=== PATIENT | male | born 1965 | race Hispanic/Latino ===

== ENCOUNTER 2019-06-08 11:03 | Emergency (ER) | payer SELFPAY | END 2019-06-08 11:26 | disposition home or self-care (01) | LOC: ERS 11:03 | DX: H65.92 Unspecified nonsuppurative otitis media, left ear (principal); E11.9 Type 2 diabetes mellitus without complications; I10 Essential (primary) hypertension; E78.5 Hyperlipidemia, unspecified; Z79.84 Long term (current) use of oral hypoglycemic drugs; Z79.899 Other long term (current) drug therapy | CPT/HCPCS: 99282 ==

== ENCOUNTER 2020-05-03 04:44 | Inpatient (IN) | payer MEDICAID, SELFPAY ==
[2020-05-03] MEDS ORDERED: Albuterol 200 PUFF (6.7GM INHALER) ONE (05:12)
[2020-05-03] MEDS ORDERED: Dexamethasone 10 MG/ML VIAL ONE (05:12)
[2020-05-03 05:18] LABS: #Basophils 0.1 thou/uL (0.0-0.2); #Eosinphils 0.1 thou/uL (0.0-0.7); #Lymphocytes 3.8 thou/uL (1.20-3.40); #Monocytes 0.4 thou/uL (0.11-0.59); #Neutrophils 5.7 thou/uL (1.40-6.50); %Basophils 1.4 % (0.0-1.0); %Eosinophils 1.1 % (0.0-10.0); %Lymphocytes 37.3 % (21.0-51.0); %Monocytes 4.3 % (0.0-10.0); %Neutrophils 55.9 % (42.0-75.0); Mean Corpuscular HGB CONC 32.1 g/dL (32.0-36.0); Mean Corpuscular Hemoglobin 28.9 pg (27.0-31.0); Mean Corpuscular Volume 90.2 fL (78.0-98.0); Platelet Count 287 thou/uL (130-400); RBC Distribution Width 13.1 % (11.5-14.5); White Blood Cell (WBC) Count 10.1 thou/uL (4.8-10.8)
[2020-05-03 05:58] LABS: ALT (SGPT) 11 U/L (8-55); AST (SGOT) 34 U/L (5-34); Alkaline Phosphatase 84 U/L (40-110); Anion Gap 20 mmol/L (10-20); BUN (Urea Nitrogen) 9 mg/dL (8.4-25.7); Bilirubin, Total 0.4 mg/dL (0.2-1.2); Calc. Creatinine Clearance 0 mL/min (70-130); Calcium 8.7 mg/dL (7.8-10.44); Carbon Dioxide 17 mmol/L (22-29); Chloride 105 mmol/L (98-107); Globulin 4.1 g/dL (2.4-3.5); Glucose 174 mg/dL (70-105); Potassium 4.8 mmol/L (3.5-5.1); Protein, Total 8.1 g/dL (6.0-8.3); Sodium 137 mmol/L (136-145)
[2020-05-03 06:02] LABS: CKMB 1.5 ng/mL (0-6.6)
[2020-05-03] MEDS ORDERED: Aspirin 325 MG TAB ONE (06:09)
[2020-05-03] MEDS ORDERED: Furosemide 40 MG/4 ML VIAL ONE (06:09)
[2020-05-03 06:25] LABS: SARS-CoV-2 NAA Rapid Test Not Detected (NotDetected)
[2020-05-03] MEDS ORDERED: Nitroglycerin 0.4 MG TAB 1 EACH ONE (06:30)
[2020-05-03 08:31] LABS: Troponin I 0.123 ng/mL (< 0.028)
[2020-05-03] MEDS ORDERED: Acetaminophen 650 MG Suppository PR PRN (08:37)
[2020-05-03] MEDS ORDERED: Calcium Carbonate 500 MG ChewTAB PO PRN (08:37)
[2020-05-03] MEDS ORDERED: Ondansetron ODT 4 MG TAB PO PRN (08:37)
[2020-05-03] MEDS ORDERED: Dextrose 5% in Water 1,000 ML IV PRN (08:37)
[2020-05-03] MEDS ORDERED: Acetaminophen 325 MG TAB PO PRN (08:37)
[2020-05-03] MEDS ORDERED: HumaLOG 300 UNITS/3 ML VIAL SC PRN (08:37)
[2020-05-03] MEDS ORDERED: Ondansetron PF 4 MG/2 ML Vial IVP PRN (08:37)
[2020-05-03] MEDS ORDERED: Guaifenesin DM 100-10/5 ML UDCUP PO PRN (08:37)
[2020-05-03] MEDS ORDERED: Dextrose 50% Abboject 50 ML SYRINGE SLOW IVP PRN (08:37)
--- NOTE | 2020-05-03 08:43 | PDOC.HHP ---
Hospitalist HPI dyspnea History of Present Illness: Case of an 54y/o male with a pmhx of htn, hld, diabetes and hx of cva/tia who comes to hospital due to sob. patient states he was on his usual state of health until about 2 weeks ago when he started with dyspnea. patient states symptoms have become progressively worse, refers GRANDA, orthopnea PND and a non productive cough. at the ED patient was diagnosed with new onset heart failure and hospitalist was called for admission. during the night patient become worse and had to be placed on bipap and admission was upgraded to IMCU. patient denies any fever chills nausea vomiting chest pain palpitations or diaphoresis. Allergies/Adverse Reactions: Allergy/AdvReac Type Severity Reaction Status Date / Time No Known Drug Allergies Allergy Verified 10/06/14 01:35 Home Medications: Medication Instructions Recorded Confirmed Type Aspirin [Ecotrin Regular Strength] 325 mg PO DAILY #0 tab 09/22/14 10/06/14 Rx Bisacodyl [Dulcolax] 10 mg PO DAILY PRN #0 tab 09/22/14 10/06/14 Rx Docusate [Colace] 100 mg PO BID #0 cap 09/22/14 10/06/14 Rx HYDROcodone Bit/APAP 10/325 [[place]] 1 tab PO Q4H PRN #0 tab 09/22/14 10/06/14 Rx Ondansetron HCl [Zofran] 4 mg PO Q4HR PRN #30 tab 09/22/14 10/06/14 Rx Pravastatin Sodium [Pravachol] 20 mg PO HS #0 tab 09/22/14 10/06/14 Rx metFORMIN [Glucophage] 1,000 mg PO BID-WM #0 tab 09/22/14 10/06/14 Rx traMADol HCl [Tramadol HCl] 50 mg PO QID PRN #0 tablet 09/22/14 10/06/14 Rx Lisinopril [Zestril] 20 mg PO DAILY #0 tab 10/07/14 Rx Past History: PMHx: as above PSHx: none FHx: htn dm Social: lives with family at home, denies alcohol tabacco or any other drug Hospitalist HPI ROS All other systems reviewed; all pertinent +/- noted in HPI/Subj Hospitalist Exam General Appearance: NAD, awake alert General - other findings: on bipap Eye: PERRL, anicteric sclera ENT: normocephalic atraumatic, no oropharyngeal lesions Neck: supple, symmetric, no JVD Heart: RRR, no murmur, no gallops, no rubs Respiratory: no wheezes, no ronchi, rales Gastrointestinal: soft, non-tender, non-distended Extremities: no cyanosis, no clubbing, no edema Skin: normal turgor, no lesions, no rashes Neurological: cranial nerve grossly intact, normal sensation to touch, no weakness Musculoskeletal: normal tone, normal strength, no muscle wasting Psychiatric: normal affect, normal behavior, A&O x 3 Hospitalist Results Result Diagrams: 05/03/20 05:07 05/03/20 05:07 Lab results: Laboratory Last Values WBC 10.1 thou/uL (4.8-10.8) 05/03/20 05:07 RBC 4.50 mill/uL (4.70-6.10) L 05/03/20 05:07 Hgb 13.0 g/dL (14.0-18.0) L 05/03/20 05:07 Hct 40.5 % (42.0-52.0) L 05/03/20 05:07 MCV 90.2 fL (78.0-98.0) 05/03/20 05:07 MCH 28.9 pg (27.0-31.0) 05/03/20 05:07 MCHC 32.1 g/dL (32.0-36.0) 05/03/20 05:07 RDW 13.1 % (11.5-14.5) 05/03/20 05:07 Plt Count 287 thou/uL (130-400) 05/03/20 05:07 MPV 8.0 fL (7.4-10.4) 05/03/20 05:07 Neutrophils % 55.9 % (42.0-75.0) 05/03/20 05:07 Lymphocytes % 37.3 % (21.0-51.0) 05/03/20 05:07 Monocytes % 4.3 % (0.0-10.0) 05/03/20 05:07 Eosinophils % 1.1 % (0.0-10.0) 05/03/20 05:07 Basophils % 1.4 % (0.0-1.0) H 05/03/20 05:07 Neutrophils # 5.7 thou/uL (1.40-6.50) 05/03/20 05:07 Lymphocytes # 3.8 thou/uL (1.20-3.40) H 05/03/20 05:07 Monocytes # 0.4 thou/uL (0.11-0.59) 05/03/20 05:07 Eosinophils # 0.1 thou/uL (0.0-0.7) 05/03/20 05:07 Basophils # 0.1 thou/uL (0.0-0.2) 05/03/20 05:07 D-Dimer 3.47 *mcg/mL (0.27-0.43) H 05/03/20 05:07 Sodium 137 mmol/L (136-145) 05/03/20 05:07 Potassium 4.8 mmol/L (3.5-5.1) 05/03/20 05:07 Chloride 105 mmol/L (98-107) 05/03/20 05:07 Carbon Dioxide 17 mmol/L (22-29) L 05/03/20 05:07 Anion Gap 20 mmol/L (10-20) 05/03/20 05:07 BUN 9 mg/dL (8.4-25.7) 05/03/20 05:07 Creatinine 0.94 mg/dL (0.7-1.3) 05/03/20 05:07 Estimated GFR (MDRD) 84 05/03/20 05:07 Glucose 174 mg/dL (70-105) H 05/03/20 05:07 Calcium 8.7 mg/dL (7.8-10.44) 05/03/20 05:07 Total Bilirubin 0.4 mg/dL (0.2-1.2) 05/03/20 05:07 AST 34 U/L (5-34) 05/03/20 05:07 ALT 11 U/L (8-55) 05/03/20 05:07 Alkaline Phosphatase 84 U/L (40-110) 05/03/20 05:07 CK-MB (CK-2) 1.5 ng/mL (0-6.6) 05/03/20 05:07 Troponin I 0.123 ng/mL (< 0.028) H 05/03/20 08:00 B-Natriuretic Peptide 911.4 pg/mL (0-100) H 05/03/20 05:07 Serum Total Protein 8.1 g/dL (6.0-8.3) 05/03/20 05:07 Albumin 4.0 g/dL (3.5-5.0) 05/03/20 05:07 Globulin 4.1 g/dL (2.4-3.5) H 05/03/20 05:07 Albumin/Globulin Ratio 1.0 g/dL (1.2-2.2) L 05/03/20 05:07 Influenza A RNA INAAT Not Detected (NotDetected) 05/03/20 05:05 Influenza B RNA INAAT Not Detected (NotDetected) 05/03/20 05:05 SARS-CoV-2 Rap RNA(RT-PCR) Not Detected (NotDetected) 05/03/20 05:05 Hospitalist H&P A/P (1) Acute heart failure Code(s): I50.9 - HEART FAILURE, UNSPECIFIED Status: Acute (2) History of CVA (cerebrovascular accident) Code(s): Z86.73 - PRSNL HX OF TIA (TIA), AND CEREB INFRC W/O RESID DEFICITS Status: Acute (3) HTN (hypertension) Code(s): I10 - ESSENTIAL (PRIMARY) HYPERTENSION Status: Acute (4) Diabetes Code(s): E11.9 - TYPE 2 DIABETES MELLITUS WITHOUT COMPLICATIONS Status: Acute (5) HLD (hyperlipidemia) Code(s): E78.5 - HYPERLIPIDEMIA, UNSPECIFIED Status: Acute (6) Elevated troponin Code(s): R77.8 - OTHER SPECIFIED ABNORMALITIES OF PLASMA PROTEINS Status: Acute (7) D-dimer, elevated Code(s): R79.89 - OTHER SPECIFIED ABNORMAL FINDINGS OF BLOOD CHEMISTRY Status: Acute (8) Respiratory failure with hypoxia Code(s): J96.91 - RESPIRATORY FAILURE, UNSPECIFIED WITH HYPOXIA Status: Acute Plan: Case of an 54y/o male with the stated pmhxz who presents with a new onset heart failure heart failure - bnp in the 900s - cxr consistent with chf, vascular congestion - will start beta isaak + acei - diuresis, lasix naive will start w 20 q 12 - 2d echo - cardiology evaluation - cardiac monitoring respiratory failure on bipap - likely secondary to above - on bipap - wean as tolerated - pulmonology consulted elevated dimer - cta ordered, still pending - will cover with full AC w lovenox until PE is r/o elevated troponin - likely nstemi type 2 in setting of new onset heart failure - asa 325 - on optimal cad protective medication w beta isaak acei and statin hx of cva - on secondary protection with asa + statin
--- NOTE | 2020-05-03 08:58 | RAD ---
CHEST 1 VIEW: INDICATION: Shortness of breath. COMPARISON: Prior acute abdominal series dated 10/05/2014. IMPRESSION: There is cardiomegaly, pulmonary vascular congestion, and perihilar interstitial airspace opacities. There are tiny pleural effusions bilaterally. No pneumothorax is evident. Findings are overall thelma picious for mild congestive heart failure. POS: BH
[2020-05-03] MEDS ORDERED: Aspirin 325 MG TAB PO SCH (09:00)
[2020-05-03] MEDS ORDERED: Lisinopril 2.5 MG TAB PO SCH (09:00)
[2020-05-03] MEDS ORDERED: Enoxaparin Sodium 80 MG/0.8 ML SYRINGE SC SCH (09:00)
--- NOTE | 2020-05-03 09:38 | CT ---
CT PULMONARY ANGIOGRAM WITH IV CONTRAST AND 3D POSTPROCESSING: Date: 05/03/2020 HISTORY: Dyspnea, cough. FINDINGS: No filling defects are seen in the pulmonary arterial vasculature to suggest pulmonary embolism. Ther e are vascular calcifications without aneurysm or dissection in the thoracic aorta. There are moderat e size bilateral pleural effusions. Multifocal patchy ground-glass opacities are seen in the lung par enchyma bilaterally. There are cysts in the right lung. No pneumothoraces are identified. Prominent l ymph nodes are seen in the mediastinum measuring up to 1.0 cm. IMPRESSION: 1. No CT evidence of pulmonary embolism. 2. Moderate size bilateral pleural effusions. 3. Bilateral patchy multifocal ground-glass infiltrates. Correlate for COVID-19 infection. POS: OFF
[2020-05-03] MEDS ORDERED: Iopamidol-370 76% 500 ML 1 ML ONE (10:23)
[2020-05-03] MEDS ORDERED: Enoxaparin Sodium 40 MG/0.4 ML SYRINGE SC SCH (11:00)
[2020-05-03 11:10] VITALS: BMI 24.0
[2020-05-03 11:29] LABS: Troponin I 0.281 ng/mL (< 0.028)
[2020-05-03] MEDS: Carvedilol 3.125 MG TAB PO SCH ×2 (11:29→20:48)
[2020-05-03] MEDS ORDERED: Magnesium Sulfate 3 GM in Sodium Chloride 0.9% 100 ML IVPB SCH (13:30)
[2020-05-03] MEDS: Furosemide 20 MG/2 ML VIAL SLOW IVP SCH (15:08)
[2020-05-03 16:56] LABS: SARS-CoV-2 PCR by NAA Not Detected (NotDetected)
--- NOTE | 2020-05-03 20:08 | CON ---
DATE OF CONSULTATION: 05/03/2020 REASON FOR CONSULTATION: Congestive heart failure. HISTORY OF PRESENT ILLNESS: Mr. Derrick Cueto is a very pleasant 54-year-old gentleman. He said he has been having trouble breathing for about 10 days. He came here to the hospital because he had increasing trouble breathing. Chest x-ray has suggested congestive heart failure and BNP also confirmed the diagnosis of congestive heart failure, received diuretics. He is also feeling better now. He did not have chest pain or pressure. PAST MEDICAL HISTORY: History of stroke in 2015. SOCIAL HISTORY: Previous history of smoking, but no longer smokes. Stopped in the past. REVIEW OF SYSTEMS: CONSTITUTIONAL: No significant weight gain or loss. VISION: No changes. HEARING: No changes. PULMONARY: Positive for shortness of breath. CARDIAC: Positive for shortness of breath. No chest pain. GASTROINTESTINAL: No nausea, vomiting, or diarrhea. SKIN: No rashes. NEUROLOGIC: No unilateral weakness or numbness. PSYCHIATRIC: No unusual depression or anxiety. PHYSICAL EXAMINATION: GENERAL: This is a pleasant, thin, 54-year-old man. VITAL SIGNS: Height 5 feet 5 inches tall, weight 144 pounds. HEENT: Eyes, sclerae nonicteric. Mouth, mucous membranes moist. NECK: Supple. No lymphadenopathy. LUNGS: With basilar rales bilaterally. No wheezing. CARDIAC: Normal S1, normal S2. No murmur, rub, or gallop. ABDOMEN: Soft, nontender. EXTREMITIES: No clubbing or cyanosis. There is no edema. DIAGNOSTIC STUDIES: Chest x-ray looks like the heart size looks somewhat enlarged with some pulmonary vascular congestion. LABORATORY DATA: Magnesium 1.5. Troponin 0.281. BNP 911. Blood pressure in the emergency room was 130/77 followed by 178/102. EKG, sinus tachycardia, left ventricular hypertrophy with repolarization changes, diffuse T-wave abnormalities, and inversion in I to aVL and V3 through V6. QRS duration is 0.1. ASSESSMENT: 1. Congestive heart failure, likely systolic, acute on chronic. 2. Lib-EY-mmmplelyy infarction with a peak troponin of 0.281, probably demand ischemia. 3. Probable underlying coronary artery disease. 4. Hypomagnesemia. 5. Still has rales. 6. CT scan is suggestive of consideration for COVID, but the COVID tests are negative. PLAN: 1. Continue diuretics. 2. We will give him some intravenous magnesium. 3. Check BNP tomorrow. 4. Echocardiogram. 5. Ultimately, we will need cardiac catheterization once he is clinically more stabilized. Job ID: [id number]
[2020-05-03] MEDS: Atorvastatin Calcium 40 MG TAB PO SCH (20:48)
[2020-05-03] MEDS: Lisinopril 2.5 MG TAB PO SCH (20:49)
[2020-05-04 04:35] LABS: #Lymphocytes 2.7 thou/uL (1.20-3.40); #Monocytes 0.8 thou/uL (0.11-0.59); #Neutrophils 12.5 thou/uL (1.40-6.50); %Basophils 0.2 % (0.0-1.0); %Eosinophils 0.1 % (0.0-10.0); %Lymphocytes 16.8 % (21.0-51.0); %Monocytes 4.8 % (0.0-10.0); Hemoglobin 11.1 g/dL (14.0-18.0); Mean Corpuscular HGB CONC 31.8 g/dL (32.0-36.0); Mean Corpuscular Hemoglobin 28.2 pg (27.0-31.0); Mean Corpuscular Volume 88.7 fL (78.0-98.0); Mean Platelet Volume 7.9 fL (7.4-10.4); Platelet Count 262 thou/uL (130-400); Red Blood Cell (RBC) Count 3.92 mill/uL (4.70-6.10)
[2020-05-04] MEDS: Furosemide 20 MG/2 ML VIAL SLOW IVP SCH ×2 (05:12→15:33)
[2020-05-04 05:14] LABS: ALT (SGPT) 8 U/L (8-55); AST (SGOT) 17 U/L (5-34); Albumin 3.8 g/dL (3.5-5.0); Alkaline Phosphatase 73 U/L (40-110); Anion Gap 15 mmol/L (10-20); BUN (Urea Nitrogen) 14 mg/dL (8.4-25.7); Bilirubin, Total 0.6 mg/dL (0.2-1.2); Calc. Creatinine Clearance 102 mL/min (70-130); Carbon Dioxide 22 mmol/L (22-29); Chloride 104 mmol/L (98-107); Globulin 3.1 g/dL (2.4-3.5); Glucose 118 mg/dL (70-105); Potassium 3.8 mmol/L (3.5-5.1); Protein, Total 6.9 g/dL (6.0-8.3); Sodium 137 mmol/L (136-145)
[2020-05-04] MEDS: Lisinopril 2.5 MG TAB PO SCH ×2 (08:21→20:27)
[2020-05-04] MEDS: Aspirin Chewable 81 MG TAB PO SCH (08:22)
[2020-05-04] MEDS: Carvedilol 3.125 MG TAB PO SCH ×2 (08:23→20:27)
[2020-05-04] MEDS ORDERED: Enoxaparin Sodium 40 MG/0.4 ML SYRINGE SC SCH (09:00)
--- NOTE | 2020-05-04 11:08 | PDOC.HOSPP ---
- Subjective Encounter Date: 05/04/20 Subjective: Patient reports she is feeling better. Denies any shortness of breath. - Objective Vital Signs & Weight: Vital Signs (12 hours) Temp Pulse Resp BP Pulse Ox 05/04/20 03:15 97.7 F 82 16 101/64 98 05/04/20 00:00 97 Weight Weight 137 lb 6.4 oz I&O: 05/03/20 05/04/20 05/05/20 06:59 06:59 06:59 Intake Total 1330 Output Total 750 Balance 580 Result Diagrams: 05/04/20 04:10 05/04/20 04:10 Additional Labs: Accuchecks 05/04/20 05/04/20 05/03/20 10:41 05:49 20:06 POC Glucose 162 H 135 H 181 H 05/03/20 05/03/20 16:32 11:00 POC Glucose 140 H 227 H Hospitalist ROS - Medication Medications: Active Medications Generic Name Dose Route Start Last Admin Trade Name Freq PRN Reason Stop Dose Admin Aspirin 81 mg 05/04/20 09:00 05/04/20 08:22 Aspirin Chewable 81 Mg Tab PO 81 mg DAILY JOSÉ MIGUEL Administration Atorvastatin Calcium 40 mg 05/03/20 21:00 05/03/20 20:48 Atorvastatin Calcium 40 Mg Tab PO 40 mg HS JOSÉ MIGUEL Administration Calcium Carbonate 1,000 mg 05/03/20 08:37 05/03/20 20:52 Calcium Carbonate 500 Mg Chewtab PO 1,000 mg Q4H PRN Administration Heartburn or Indigestion Carvedilol 3.125 mg 05/03/20 09:00 05/04/20 08:23 Carvedilol 3.125 Mg Tab PO 3.125 mg BID JOSÉ MIGUEL Administration Enoxaparin Sodium 40 mg 05/04/20 09:00 05/04/20 08:23 Enoxaparin Sodium 40 Mg/0.4 Ml Syringe SC 40 mg 0900 JOSÉ MIGUEL Administration Furosemide 20 mg 05/03/20 14:00 05/04/20 05:12 Furosemide 20 Mg/2 Ml Vial SLOW IVP 20 mg 0600,1400 JOSÉ MIGUEL Administration Levofloxacin 750 mg/ Device 150 mls @ 100 mls/hr 05/03/20 20:00 05/03/20 20:49 IVPB 150 mls Q24HR JOSÉ MIGUEL Administration Insulin Human Lispro 0 units 05/03/20 08:37 05/03/20 11:41 Humalog 300 Units/3 Ml Vial SC 3 unit .MILD SLIDING SCALE PRN Administration Mild Correctional Scale Lisinopril 2.5 mg 05/03/20 21:00 05/04/20 08:21 Lisinopril 2.5 Mg Tab PO 2.5 mg BID JOSÉ MIGUEL Administration Sodium Chloride 10 ml 05/03/20 21:00 05/04/20 08:23 Flush - Normal Saline 10 Ml Syringe IVF 10 ml Q12HR JOSÉ MIGUEL Administration Sodium Chloride 10 ml 05/03/20 09:15 05/04/20 05:12 Flush - Normal Saline 10 Ml Syringe IVF 10 ml PRN PRN Administration Saline Flush Hospitalist Exam Vitals: Vital Signs (12 hours) Temp Pulse Resp BP Pulse Ox 05/04/20 03:15 97.7 F 82 16 101/64 98 05/04/20 00:00 97 Weight Weight 137 lb 6.4 oz General Appearance: NAD, awake alert Neck: supple, symmetric, no JVD, no thyromegaly, no lymphadenopathy, no carotid bruit Heart: RRR, no murmur, no gallops, no rubs, normal peripheral pulses Respiratory: CTAB, no wheezes, no rales, no ronchi, normal chest expansion, no tachypnea, normal percussion Gastrointestinal: soft, non-tender, non-distended, normal bowel sounds, no palpable masses, no hepatomegaly, no splenomegaly, no bruit Extremities: no cyanosis, no clubbing, no edema Skin: normal turgor Neurological: no new deficit Musculoskeletal: normal tone, normal strength, no muscle wasting Psychiatric: normal affect, normal behavior, A&O x 3 Hosp A/P (1) Acute heart failure Code(s): I50.9 - HEART FAILURE, UNSPECIFIED Status: Acute (2) D-dimer, elevated Code(s): R79.89 - OTHER SPECIFIED ABNORMAL FINDINGS OF BLOOD CHEMISTRY Status: Acute (3) Diabetes Code(s): E11.9 - TYPE 2 DIABETES MELLITUS WITHOUT COMPLICATIONS Status: Acute (4) Elevated troponin Code(s): R77.8 - OTHER SPECIFIED ABNORMALITIES OF PLASMA PROTEINS Status: Acute (5) HLD (hyperlipidemia) Code(s): E78.5 - HYPERLIPIDEMIA, UNSPECIFIED Status: Acute (6) HTN (hypertension) Code(s): I10 - ESSENTIAL (PRIMARY) HYPERTENSION Status: Acute (7) History of CVA (cerebrovascular accident) Code(s): Z86.73 - PRSNL HX OF TIA (TIA), AND CEREB INFRC W/O RESID DEFICITS Status: Acute (8) Respiratory failure with hypoxia Code(s): J96.91 - RESPIRATORY FAILURE, UNSPECIFIED WITH HYPOXIA Status: Acute - Plan Acute heart failure: Specific etiology not yet known. Echocardiogram pending Cardiology consult appreciated. Continue with diuresis. Continue with JUHI inhibitor. Continue with carvedilol. Acute hypoxic respiratory failure: Patient initially was requiring some CPAP but was quickly weaned down to room air. No evidence of ongoing respiratory failure or symptomatic shortness of breath. Elevated D-dimer: Negative CTA chest. Patient also had some findings on the CT which could have been consistent with COVID-19 pneumonia. That would explain an elevated D-dimer as well. However, his white blood cell count is elevated and his Covid test is negative. He also feels symptomatically much better today. Elevated troponin: Slowly trending upward. Consistent with NSTEMI. Will likely need heart cath. Hypertension: Continue with JUHI inhibitor beta-isaak. Diabetes mellitus: Holding Metformin in light of the fact that he will likely need a heart cath. Continue with sliding scale insulin. So far well controlled. Tobacco abuse: Patient himself indicated that he believes his problems are related to his smoking. He feels confident he will be able to quit. Hyperlipidemia: Continue with atorvastatin.
[2020-05-04] MEDS ORDERED: FLU VACC QS2020-21(6MOS UP)/PF 60 MCG/0.5 ML SYRINGE IM ONE (11:15)
[2020-05-04] MEDS ORDERED: Communication Order-Pharmacy FS SCH (13:15)
--- NOTE | 2020-05-04 13:49 | PRG ---
DATE OF SERVICE: 05/04/2020 SUBJECTIVE: Mr. Cueto is feeling better. He is breathing well. No chest pain or pressure. OBJECTIVE: VITAL SIGNS: His blood pressure is just over 100 systolic, pulse is in the 70 to 80 range. LUNGS: Clear. CARDIAC: Normal S1, normal S2. ABDOMEN: Soft, nontender. EXTREMITIES: No edema. DIAGNOSTIC DATA: Echocardiogram showed ejection fraction 25%, anterior apical akinesis, otherwise global hypokinesis. ASSESSMENT: 1. Congestive heart failure, systolic, acute on chronic, improved. 2. Severely depressed left ventricular function. 3. Probable underlying coronary artery disease. PLAN: 1. He is on JUHI inhibitors. 2. Beta blockers. 3. Aspirin. 4. Statin. 5. Proceed to cardiac catheterization tomorrow. I explained to this gentleman with the help of the interpreting device in the dental practice manager service in the room. The risks of catheterization discussed risk of stroke, heart attack, emergency bypass surgery, stent thrombosis. The patient understands the risk and wishes to proceed. Job ID: [id number]
[2020-05-04] MEDS: Atorvastatin Calcium 40 MG TAB PO SCH (20:27)
[2020-05-05] MEDS: Carvedilol 3.125 MG TAB PO SCH (05:17)
[2020-05-05] MEDS: Lisinopril 2.5 MG TAB PO SCH (05:17)
[2020-05-05] MEDS: Aspirin Chewable 81 MG TAB PO SCH (05:18)
[2020-05-05] MEDS ORDERED: Sodium Chloride 0.9% 1,000 ML IV SCH (06:00)
[2020-05-05] MEDS ORDERED: Protamine Sulfate 250 MG/25 ML VIAL ONE (08:44)
[2020-05-05] MEDS ORDERED: Cardioplegic Soln 1,000 ML BAG ONE (08:44)
[2020-05-05] MEDS ORDERED: Aminocaproic Acid 5 GM/20 ML VIAL ONE (08:44)
[2020-05-05] MEDS ORDERED: Papaverine 60 MG/2 ML VIAL ONE (08:44)
[2020-05-05] MEDS ORDERED: Magnesium Sulfate 1 GM/2 ML VIAL ONE (08:44)
[2020-05-05] MEDS ORDERED: Nitroglycerin 50 MG/250 ML BOT ONE (08:44)
[2020-05-05] MEDS ORDERED: Sodium Bicarb 50 MEQ/50 ML Abboject 8.4% SYRINGE ONE (08:44)
[2020-05-05] MEDS ORDERED: Heparin 30,000 units/30 ml VIAL ONE (08:44)
[2020-05-05] MEDS ORDERED: Thrombin 5000 UNITS/5 ML VIAL ONE (08:44)
[2020-05-05] MEDS ORDERED: Norepinephrine 4 MG/4 ML VIAL ONE (08:44)
[2020-05-05] MEDS ORDERED: PHENYLEPHRINE-NS 100 MCG/ML 10 ML SYRINGE ONE (08:44)
[2020-05-05] MEDS ORDERED: Vecuronium 10 MG VIAL ONE ×3 (08:44→11:12)
[2020-05-05] MEDS ORDERED: Heparin 5,000 UNITS/ML VIAL ONE (08:44)
[2020-05-05] MEDS ORDERED: Mannitol 12.5 GM/50 ML ONE (08:44)
[2020-05-05] MEDS ORDERED: Lidocaine 2% PF 100 mg/5 ml Syringe ONE (08:44)
[2020-05-05] MEDS ORDERED: Calcium Chloride 1 GM/10 ML Abboject SYRINGE ONE (08:44)
[2020-05-05] MEDS ORDERED: Potassium Chloride 60 MEQ/30 ML VIAL ONE (08:44)
[2020-05-05] MEDS ORDERED: Lidocaine 1% PF 5 ML VIAL ONE ×2 (08:44)
[2020-05-05] MEDS ORDERED: Fentanyl 100 MCG/2 ML VIAL ONE ×2 (10:17→11:12)
[2020-05-05] MEDS ORDERED: Midazolam HCl 2 mg/2 ml Vial ONE ×2 (10:17→11:12)
[2020-05-05] MEDS ORDERED: Heparin 10,000 UNITS/ 10 ML VIAL ONE (10:45)
[2020-05-05] MEDS ORDERED: Albumin 5% 500 ML ONE (11:05)
[2020-05-05] MEDS ORDERED: Midazolam HCl 5 mg/5 ml Vial ONE (11:12)
[2020-05-05] MEDS ORDERED: Dexmedetomidine 200 MCG/2 ML VIAL ONE (11:12)
[2020-05-05] MEDS ORDERED: Milrinone 10 MG/10 ML VIAL ONE ×3 (11:40)
[2020-05-05] MEDS ORDERED: Heparin 10,000 UNITS/1 ML VIAL 30,000 UNITS in Sodium Chloride 0.9% 1,000 ML FS SCH (12:15)
[2020-05-05] MEDS ORDERED: Iopamidol 370 76% 100 ML VIAL ONE (13:08)
--- NOTE | 2020-05-05 13:16 | PDOC.HOSPP ---
- Subjective Encounter Date: 05/05/20 Encounter Time: 08:00 Subjective: pt seen on f/u for heart failure, is schedule for [facility] today, refers is feeling fine denies any chest pain palpitations or diaphoresis - Objective Vital Signs & Weight: Vital Signs (12 hours) Temp Pulse Resp BP Pulse Ox 05/05/20 07:30 98 05/05/20 07:20 98.5 F 61 18 99/65 98 05/05/20 05:18 104/62 05/05/20 05:17 64 05/05/20 03:31 98.9 F 64 16 93/61 98 Weight Weight 135 lb I&O: 05/04/20 05/05/20 05/06/20 06:59 06:59 06:59 Intake Total 1330 1700 Output Total 750 Balance 580 1700 Result Diagrams: 05/04/20 04:10 05/04/20 04:10 Additional Labs: Accuchecks 05/05/20 05/04/20 05/04/20 05:14 20:09 16:46 POC Glucose 121 H 183 H 151 H Hospitalist ROS - Review of Systems All other systems reviewed; all pertinent +/- noted in HPI/Subj - Medication Medications: Active Medications Generic Name Dose Route Start Last Admin Trade Name Freq PRN Reason Stop Dose Admin Aspirin 81 mg 05/04/20 09:00 05/05/20 05:18 Aspirin Chewable 81 Mg Tab PO 81 mg DAILY JOSÉ MIGUEL Administration Atorvastatin Calcium 40 mg 05/03/20 21:00 05/04/20 20:27 Atorvastatin Calcium 40 Mg Tab PO 40 mg HS JOSÉ MIGUEL Administration Calcium Carbonate 1,000 mg 05/03/20 08:37 05/03/20 20:52 Calcium Carbonate 500 Mg Chewtab PO 1,000 mg Q4H PRN Administration Heartburn or Indigestion Carvedilol 3.125 mg 05/03/20 09:00 05/05/20 05:17 Carvedilol 3.125 Mg Tab PO 3.125 mg BID JOSÉ MIGUEL Administration Levofloxacin 750 mg/ Device 150 mls @ 100 mls/hr 05/03/20 20:00 05/04/20 20:26 IVPB 150 mls Q24HR JOSÉ MIGUEL Administration Sodium Chloride 1,000 mls @ 70 mls/hr 05/05/20 06:00 05/05/20 05:17 Normal Saline 0.9% IV 1,000 mls .[id number] JOSÉ MIGUEL Administration Lisinopril 2.5 mg 05/03/20 21:00 05/05/20 05:17 Lisinopril 2.5 Mg Tab PO 2.5 mg BID JOSÉ MIGUEL Administration Sodium Chloride 10 ml 05/03/20 21:00 05/05/20 05:18 Flush - Normal Saline 10 Ml Syringe IVF 10 ml Q12HR JOSÉ MIGUEL Administration Sodium Chloride 10 ml 05/03/20 09:15 05/04/20 05:12 Flush - Normal Saline 10 Ml Syringe IVF 10 ml PRN PRN Administration Saline Flush Hospitalist Exam Vitals: Vital Signs (12 hours) Temp Pulse Resp BP Pulse Ox 05/05/20 07:30 98 05/05/20 07:20 98.5 F 61 18 99/65 98 05/05/20 05:18 104/62 05/05/20 05:17 64 05/05/20 03:31 98.9 F 64 16 93/61 98 Weight Weight 135 lb General Appearance: NAD, awake alert Eye: PERRL, anicteric sclera ENT: normocephalic atraumatic, no oropharyngeal lesions Neck: supple, symmetric, no JVD Heart: RRR, no murmur, no gallops Respiratory: CTAB, no wheezes, no rales Gastrointestinal: soft, non-tender, non-distended Extremities: no cyanosis, no clubbing, no edema Skin: normal turgor, no lesions, no rashes Neurological: cranial nerve grossly intact, normal sensation to touch Musculoskeletal: normal tone, normal strength, no muscle wasting Psychiatric: normal affect, normal behavior, A&O x 3 Hosp A/P (1) Acute heart failure Code(s): I50.9 - HEART FAILURE, UNSPECIFIED Status: Acute (2) History of CVA (cerebrovascular accident) Code(s): Z86.73 - PRSNL HX OF TIA (TIA), AND CEREB INFRC W/O RESID DEFICITS Status: Acute (3) HTN (hypertension) Code(s): I10 - ESSENTIAL (PRIMARY) HYPERTENSION Status: Acute (4) Diabetes Code(s): E11.9 - TYPE 2 DIABETES MELLITUS WITHOUT COMPLICATIONS Status: Acute (5) HLD (hyperlipidemia) Code(s): E78.5 - HYPERLIPIDEMIA, UNSPECIFIED Status: Acute (6) Elevated troponin Code(s): R77.8 - OTHER SPECIFIED ABNORMALITIES OF PLASMA PROTEINS Status: Ac ruperto (7) D-dimer, elevated Code(s): R79.89 - OTHER SPECIFIED ABNORMAL FINDINGS OF BLOOD CHEMISTRY Status: Acute (8) Respiratory failure with hypoxia Code(s): J96.91 - RESPIRATORY FAILURE, UNSPECIFIED WITH HYPOXIA Status: Acute - Plan Acute heart failure Echo 25-30% ef Continue with diuresis. Continue with JUHI inhibitor. Continue with carvedilol. Acute hypoxic respiratory failure: - Patient initially was requiring some CPAP but was quickly weaned down to room air. Elevated D-dimer: - Negative CTA chest. - Patient also had some findings on the CT which could have been consistent with COVID-19 pneumonia. - negative covid 19 Elevated troponin: Slowly trending upward. Consistent with NSTEMI. Cardiology consulted, recommended LHC will happening today, patient require emergen CABG will be send to icu Hypertension -Continue with JUHI inhibitor beta-isaak. Diabetes mellitus - Holding Metformin in light of the fact that he will likely need a heart cath. - Continue with sliding scale insulin. Tobacco abuse: Patient himself indicated that he believes his problems are related to his smoking. He feels confident he will be able to quit. Hyperlipidemia: Continue with atorvastatin.
[2020-05-05 16:10] LABS: Actual Bicarbonate (HCO3a) 21.7 mEq/L (22-28); Base Excess (BEa) -4.1 mEq/L (-2.0 to +3.0); CO2 Tension 42.3 mmHg (35.0-45.0); Calcium, Ionized (arterial) 1.11 mmol/L (1.12-1.30); Hemoglobin (Hb) 12.1 g/dL (14.0-18.0); O2 Tension (PaO2), arterial 74.2 mmHg (80.0-100.0); Potassium - ABG Lab 4.07 mmol/L (3.70-5.30); pH, Arterial 7.33 (7.35-7.45)
[2020-05-05 16:24] LABS: ALV-art Gradient 300.725 mmHg (0-20); Puncture Site Arterial Line
[2020-05-05] MEDS ORDERED: niCARdipine 25 MG in Sodium Chloride 0.9% 250 ML 240 ML IVPB PRN (16:38)
[2020-05-05] MEDS ORDERED: Promethazine HCl 25 MG/ML VIAL IM PRN (16:38)
[2020-05-05] MEDS ORDERED: Guaifenesin DM 100-10/5 ML UDCUP PO PRN (16:38)
[2020-05-05] MEDS ORDERED: Morphine 2 MG/ML VIAL SLOW IVP PRN (16:38)
[2020-05-05] MEDS ORDERED: Hetastarch 6% 500 ML 500 ML IVPB PRN (16:38)
[2020-05-05] MEDS ORDERED: hydrALAZINE 20 MG/ML VIAL SLOW IVP PRN (16:38)
[2020-05-05] MEDS ORDERED: Bisacodyl 10 MG SUPP PR PRN (16:38)
[2020-05-05] MEDS ORDERED: Norepinephrine 8 MG/0.9% NS 250 ML IVPB PRN (16:38)
[2020-05-05] MEDS ORDERED: Mag-Al 1200 mg/1200 mg/30 ML UDCUP PO PRN (16:38)
[2020-05-05] MEDS ORDERED: Potassium Chloride 20 MEQ/100 ML PREMIX BAG IVPB PRN (16:38)
[2020-05-05] MEDS ORDERED: Nitroglycerin 50 MG/250 ML BOT 250 ML IVPB PRN (16:38)
[2020-05-05] MEDS ORDERED: Fentanyl 100 MCG/2 ML VIAL SLOW IVP PRN (16:38)
[2020-05-05] MEDS ORDERED: Post-Op Insulin Drip Protocol IVPB ONE (16:38)
[2020-05-05] MEDS ORDERED: Ondansetron PF 4 MG/2 ML Vial IVP PRN (16:38)
[2020-05-05] MEDS ORDERED: Bisacodyl 5 MG TAB PO PRN (16:38)
[2020-05-05] MEDS ORDERED: DOPamine 400 MG/D5W 250 ML 250 ML IVPB PRN (16:38)
--- NOTE | 2020-05-05 17:05 | RAD ---
CHEST ONE VIEW: 05/05/20 HISTORY: Post open heart surgery. COMPARISON: CT angiogram chest two days prior. FINDINGS: Endotracheal tube tip sits below the clavicular level. Small right pneumomediastinum with mediastinal drains. Mild pulmonary edema. No significant pneumothorax. A right sided subclavian approach catheter. Tip projects to the left beth e of midline in expected location in the mid descending left SVC. The patient does have a left sided SVC which does drain into the coronary sinus. No acute osseous abnormality. IMPRESSION: 1. Uncomplicated postoperative findings. 2. Right subclavian approach central venous catheter tip projects through the mid descending lef t side of SVC which the left sided SVC was noted on the 05/03/20 CT angiogram examination. POS: HOME
[2020-05-05 17:11] LABS: Hemoglobin 11.7 g/dL (14.0-18.0); Mean Corpuscular HGB CONC 32.2 g/dL (32.0-36.0); Mean Corpuscular Volume 90.1 fL (78.0-98.0); Mean Platelet Volume 8.5 fL (7.4-10.4); Platelet Count 173 thou/uL (130-400); RBC Distribution Width 13.1 % (11.5-14.5); Red Blood Cell (RBC) Count 4.04 mill/uL (4.70-6.10); White Blood Cell (WBC) Count 20.3 thou/uL (4.8-10.8)
[2020-05-05] MEDS ORDERED: Magnesium 2 GM/50 ML 2 GM in Premix Bag 1 BAG IVPB SCH (17:15)
[2020-05-05] MEDS ORDERED: Dextrose 5% in Water 1,000 ML IV PRN (17:15)
[2020-05-05] MEDS ORDERED: Dextrose 50% Abboject 50 ML SYRINGE SLOW IVP PRN (17:15)
[2020-05-05] MEDS ORDERED: HUMULIN R 100 UNITS in Sodium Chloride 0.9% 100 ML IVPB SCH (17:15)
[2020-05-05 17:16] LABS: INR-International Normal Ratio 1.3; PTT 30.8 sec (22.9-36.1); Prothrombin Time 16.4 sec (12.0-14.7)
[2020-05-05 17:25] LABS: Anion Gap 13 mmol/L (10-20); BUN (Urea Nitrogen) 16 mg/dL (8.4-25.7); Calc. Creatinine Clearance 106 mL/min (70-130); Calcium 7.8 mg/dL (7.8-10.44); Carbon Dioxide 21 mmol/L (22-29); Chloride 108 mmol/L (98-107); Glucose 164 mg/dL (70-105); Potassium 4.2 mmol/L (3.5-5.1); Sodium 138 mmol/L (136-145)
[2020-05-05] MEDS: Lactated Ringer's 1,000 ML IV SCH (17:31)
[2020-05-05] MEDS: Fentanyl 100 MCG/2 ML VIAL SLOW IVP PRN ×2 (17:31→20:44)
[2020-05-05] MEDS: Ketorolac Tromethamine 30 MG/ML VIAL IVP SCH ×2 (17:40→22:59)
[2020-05-05 17:49] LABS: Band 30 % (5-11); Lymphocytes 9 % (21-51); MDiff Complete? YES; Neutrophil 61 % (42-75); Platelet Morphology Comment Appears Adequate; Polychromasia SLIGHT = 2-3 cells (100X) (0-2/hpf)
[2020-05-05] MEDS: CEFAZOLIN 2 GM in Premix Bag 1 BAG IVPB SCH ×2 (17:52→22:50)
--- NOTE | 2020-05-05 18:21 | CON ---
DATE OF CONSULTATION: HISTORY OF PRESENT ILLNESS: A 54-year-old gentleman with a 2-week history of fatigue and dyspnea and presented to the hospital 2 days ago with a troponin of less than 0.3. Chest x-ray and CTA are consistent with pulmonary edema. COVID swab negative. Cardiac echo, EF to 25% per Dr. Mahoney's interpretation and cardiac cath today with an LVEDP of 22, systolic pressure of 96. EF appears to be about 10% to 15%. Diffusely diseased right coronary artery including proximal PDA, near complete occlusion and long segment occlusion of the left main with occluded LAD that fills slowly from itself. The circumflex consisted of basically a single obtuse marginal. PAST MEDICAL HISTORY: Diabetes, hypertension, dyslipidemia, remote smoking history, remote heavy alcohol use, previous stroke from left vertebral artery occlusion distally about five years ago with resolution of symptoms. 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 MEDICATIONS: Prior to admission included: 1. Metformin 1000 a day. 2. Pravastatin 20 a day. 3. Lisinopril 20 a day. 4. Aspirin 1 a day. PAST SURGICAL HISTORY: Negative. PHYSICAL EXAMINATION: VITAL SIGNS: Weight 135 pounds, height 5 feet 5 inches, blood pressure about 100, heart rate about 60. NECK: No carotid bruits. LUNGS: Clear to auscultation. CARDIAC: Distant heart sounds. No murmurs. ABDOMEN: Nontender. EXTREMITIES: Sheaths in the right groin. Palpable femoral and popliteal pulses bilaterally with no peripheral edema. IMPRESSION: The patient with subtotal left main, recent LAD occlusion with slight elevation in enzymes with very poor ejection fraction compared with 5 years ago when his EF was normal. PLAN: Emergency coronary bypass grafting to the LAD, OM, possible right PDA, and informed consent has been obtained. Job ID: [id number]
[2020-05-05] MEDS ORDERED: Milrinone Lactate/D5W 20 MG in Premix Bag 1 BAG IV SCH (18:45)
[2020-05-05] MEDS: Famotidine/PF 20 mg/2ml Vial SLOW IVP SCH (20:44)
[2020-05-05] MEDS: Insulin Regular 300 UNITS/3 ML VIAL SC PRN (20:56)
[2020-05-05] MEDS: Simvastatin 20 MG TAB PO SCH (21:05)
[2020-05-05 21:17] LABS: Hemoglobin 10.4 g/dL (14.0-18.0)
[2020-05-05 21:33] LABS: Potassium 3.8 mmol/L (3.5-5.1)
[2020-05-05 22:35] LABS: Actual Bicarbonate (HCO3a) 21.2 mEq/L (22-28); Base Excess (BEa) -2.7 mEq/L (-2.0 to +3.0); CO2 Tension 33.9 mmHg (35.0-45.0); Calcium, Ionized (arterial) 1.04 mmol/L (1.12-1.30); Carboxyhemoglobin (COHb) 0.5 gm% (0.0-3.0); Potassium - ABG Lab 3.61 mmol/L (3.70-5.30); Puncture Site Arterial Line; pH, Arterial 7.42 (7.35-7.45)
[2020-05-05 22:36] LABS: ALV-art Gradient 117.825 mmHg (0-20)
[2020-05-06] MEDS: HYDROcodone/Acetaminophen 5/325 mg Tablet PO PRN ×3 (03:59→14:41)
[2020-05-06 05:22] LABS: Band 7 % (5-11); Hemoglobin 9.6 g/dL (14.0-18.0); Lymphocytes 17 % (21-51); MDiff Complete? YES; Mean Corpuscular HGB CONC 32.5 g/dL (32.0-36.0); Mean Corpuscular Hemoglobin 29.6 pg (27.0-31.0); Mean Platelet Volume 8.6 fL (7.4-10.4); Monocytes 5 % (0-10); Neutrophil 71 % (42-75); Platelet Count 153 thou/uL (130-400); RBC Distribution Width 12.7 % (11.5-14.5); Red Blood Cell (RBC) Count 3.23 mill/uL (4.70-6.10); White Blood Cell (WBC) Count 10.6 thou/uL (4.8-10.8)
[2020-05-06] MEDS: Lactated Ringer's 1,000 ML IV SCH ×2 (05:25→18:45)
[2020-05-06] MEDS: Ketorolac Tromethamine 30 MG/ML VIAL IVP SCH ×4 (05:26→23:45)
[2020-05-06 05:27] LABS: Anion Gap 11 mmol/L (10-20); BUN (Urea Nitrogen) 16 mg/dL (8.4-25.7); Calc. Creatinine Clearance 118 mL/min (70-130); Calcium 7.5 mg/dL (7.8-10.44); Carbon Dioxide 22 mmol/L (22-29); Chloride 109 mmol/L (98-107); Glucose 108 mg/dL (70-105); Potassium 3.6 mmol/L (3.5-5.1); Sodium 138 mmol/L (136-145)
[2020-05-06] MEDS: Famotidine/PF 20 mg/2ml Vial SLOW IVP SCH ×2 (09:23→20:06)
[2020-05-06] MEDS: Aspirin Chewable 81 MG TAB PO SCH (09:23)
[2020-05-06] MEDS: CEFAZOLIN 2 GM in Premix Bag 1 BAG IVPB SCH (12:55)
--- NOTE | 2020-05-06 14:40 | PDOC.HOSPP ---
- Subjective Encounter Date: 05/06/20 Encounter Time: 10:30 Subjective: Patient seen and examined for CHF/coronary artery disease. Denies any chest pain or palpitations. Pain controlled. Denies any nausea or vomiting. - Objective Vital Signs & Weight: Vital Signs (12 hours) Temp Pulse Ox 05/06/20 12:00 98.3 F 05/06/20 11:26 93 L 05/06/20 08:00 97.9 F 93 L 05/06/20 07:55 97 05/06/20 04:15 93 L 05/06/20 04:00 98.0 F Weight Weight 141 lb 8.588 oz Most Recent Monitor Data Heart Rate from ECG 84 NIBP 109/68 NIBP BP-Mean 81 Respiration from ECG 16 SpO2 93 I&O: 05/05/20 05/06/20 05/07/20 06:59 06:59 06:59 Intake Total 1700 1991.6 1570 Output Total 1445 450 Balance 1700 546.6 1120 Result Diagrams: 05/06/20 04:16 05/06/20 04:16 Additional Labs: Accuchecks 05/06/20 05/06/20 05/05/20 12:42 09:38 23:58 POC Glucose 117 H 109 H 98 05/05/20 19:24 POC Glucose 134 H Abnormal Lab Results - Last 48 hrs 05/05/20 12:01: Crossmatch See Detail 05/05/20 16:00: Bicarbonate Actual 21.7 L, ABG pH 7.33 L, ABG pO2 74.2 L, ABG O2 Sat (Measured) 93.2 L, ABG O2 Content 15.7 L, ABG Base Excess -4.1 L, ABG Hematocrit 36.0 L, ABG Hemoglobin 12.1 L, ABG Oxyhemoglobin 92.0 L, ABG Deoxyhemoglobin 6.7 H, A-a O2 Gradient 300.725 H, Chloride 108 H, Ionized Calcium 1.11 L 05/05/20 16:01: Chloride 108 H, Carbon Dioxide 21 L, Creatinine 0.69 L 05/05/20 16:01: WBC 20.3 H, RBC 4.04 L, Hgb 11.7 L, Hct 36.3 L, Band Neuts % (Manual) 30 H, Lymphocytes % (Manual) 9 L 05/05/20 16:01: PT 16.4 H 05/05/20 21:00: Hgb 10.4 L, Hct 32.3 L 05/05/20 22:00: Bicarbonate Actual 21.2 L, ABG pCO2 33.9 L, ABG pO2 125.0 H, ABG O2 Sat (Measured) 98.4 H, ABG O2 Content 15.3 L, ABG Base Excess -2.7 L, ABG Hematocrit 32.0 L, ABG Hemoglobin 11.0 L, A-a O2 Gradient 117.825 H, Potassium 3.61 L, Chloride 111 H, Ionized Calcium 1.04 L 05/06/20 04:16: Chloride 109 H, Creatinine 0.62 L, Calcium 7.5 L 05/06/20 04:16: RBC 3.23 L, Hgb 9.6 L, Hct 29.4 L, Lymphocytes % (Manual) 17 L Radiology Reviewed by me: Yes (Chest x-rayno new infiltrate) EKG Reviewed by me: Yes (Sinus rhythm on telemetry) Hospitalist ROS - Review of Systems Cardiovascular: denies: chest pain, palpitations, orthopnea, paroxysmal noc. dyspnea, edema, light headedness, other Gastrointestinal: denies: nausea, vomiting, abdominal pain, diarrhea, constipation, melena, hematochezia, other - Medication Medications: Active Medications Generic Name Dose Route Start Last Admin Trade Name Freq PRN Reason Stop Dose Admin Hydrocodone Bitart/Acetaminophen 1 tab 05/05/20 16:38 05/06/20 03:59 Hydrocodone/Acetaminophen 5/325 Mg Tablet PO 1 tab Q4H PRN Administration Moderate Pain (4-6) Hydrocodone Bitart/Acetaminophen 2 tab 05/05/20 16:38 05/06/20 09:28 Hydrocodone/Acetaminophen 5/325 Mg Tablet PO 2 tab Q4H PRN Administration Severe Pain (7-10) Albumin Human 12.5 gm 05/05/20 16:38 05/06/20 09:29 Albumin 5% 12.5 Gm/250 Ml Bot IVPB 05/06/20 16:39 12.5 gm Q6H PRN Administration To Maintain SBP> 90 mmHG Albumin Human 25 gm 05/05/20 16:38 05/05/20 22:50 Albumin 5% 12.5 Gm/250 Ml Bot IVPB 05/06/20 16:39 25 gm Q6H PRN Administration To Maintain SBP > 90 mmHG Aspirin 81 mg 05/06/20 09:00 05/06/20 09:23 Aspirin Chewable 81 Mg Tab PO 81 mg DAILY JOSÉ MIGUEL Administration Famotidine 20 mg 05/05/20 21:00 05/06/20 09:23 Famotidine/Pf 20 Mg/2ml Vial SLOW IVP 20 mg Q12HR JOSÉ MIGUEL Administration Fentanyl 50 mcg 05/05/20 16:38 05/05/20 20:44 Fentanyl 100 Mcg/2 Ml Vial SLOW IVP 05/07/20 15:30 50 mcg Q2H PRN Administration Severe Pain (7-10) Hetastarch/Sodium Chloride 500 mls @ 0 mls/hr 05/05/20 16:38 05/05/20 19:30 Hespan IVPB 05/06/20 15:30 500 mls PRN PRN Administration To Maintain SBP > 90mmHg As Directed Lactated Ringer's 1,000 mls @ 75 mls/hr 05/05/20 16:38 05/06/20 05:25 Lactated Ringer's IV 1,000 mls .[id number] JOSÉ MIGUEL Administration Insulin Human Regular 0 units 05/05/20 17:15 05/05/20 20:56 Insulin Regular 300 Units/3 Ml Vial SC 2 unit Q4H PRN Administration POST OP SLIDING SCALE Protocol Ketorolac Tromethamine 15 mg 05/05/20 18:00 05/06/20 12:56 Ketorolac Tromethamine 30 Mg/Ml Vial IVP 05/07/20 18:01 15 mg Q6HR JOSÉ MIGUEL Administration Simvastatin 20 mg 05/05/20 21:00 05/05/20 21:05 Simvastatin 20 Mg Tab PO Not Given QPM [facility] Hospitalist Exam Vitals: Vital Signs (12 hours) Temp Pulse Ox 05/06/20 12:00 98.3 F 05/06/20 11:26 93 L 05/06/20 08:00 97.9 F 93 L 05/06/20 07:55 97 05/06/20 04:15 93 L 05/06/20 04:00 98.0 F Weight Weight 141 lb 8.588 oz Most Recent Monitor Data Heart Rate from ECG 84 NIBP 109/68 NIBP BP-Mean 81 Respiration from ECG 16 SpO2 93 General Appearance: awake alert ENT: normocephalic atraumatic, no oropharyngeal lesions Neck: supple, no JVD Heart: RRR, no gallops Respiratory: no wheezes, no rales, no ronchi, normal chest expansion Respiratory - other findings: Chest tube present Gastrointestinal: soft, non-distended, normal bowel sounds, no guarding, no rigidity Extremities: no cyanosis, no clubbing, no edema Extremities - other findings: No calf tenderness Neurological: no new deficit Musculoskeletal: generalized weakness Psychiatric: normal affect, A&O x 3 Hosp A/P - Plan DVT proph w/SCDs 54-year-old male with hypertension, diabetes mellitus type 2, hyperlipidemia and CVA in the past presented to the hospital with shortness of breath on 05/03. He was started on noninvasive positive pressure ventilation for respiratory failure/new onset congestive heart failure. His BNP on admission was 911.4 with elevated troponin of 0.281.. He was started on IV diuretics along with O2 supplementation. Patient was evaluated by cardiology Dr. Mahoney who recommended cardiac catheterization on 05/05 that showed three-vessel disease with ejection fraction of approximately 10 to 15% requiring emergent coronary artery bypass grafting that was performed on the same day. Impression: Acute hypoxic respiratory failure due to acute systolic heart failure exace rbation Non-ST elevation NV probably due to demand ischemia Hypertension Diabetes mellitus type 2 Hyperlipidemia History of CVA Chronic anemia probably due to nutritional deficiency Hypomagnesemia Plan: Continue aspirin with statins. Magnesium replaced. Continue supportive care. Recheck labs in a.m. Pain control. DVT and GI prophylaxis.
--- NOTE | 2020-05-06 15:20 | PDOC.CPN ---
- Subjective Date: 05/06/20 Time: 15:19 Interval history: Doing better. Had Emergent CABG yesterday. Chest soreness. - Review of Systems General: denies: fever/chills, weight/appetite/sleep changes, night sweats, fatigue Respiratory: denies: cough, congestion, shortness of breath, exercise intolerance Cardiovascular: reports: chest pain. denies: palpitation, edema, paroxysmal nocturnal dyspnea, orthopnea Gastrointestinal: denies: nausea, vomiting, diarrhea, constipation, abd pain, GI bleeding Musculoskeletal: reports: pain. denies: tenderness, stiffness, swelling, arthritis/arthralgias Neurological: denies: numbness, syncope, seizure, weakness - Objective Allergies/Adverse Reactions: Allergies Allergy/AdvReac Type Severity Reaction Status Date / Time No Known Drug Allergies Allergy Verified 10/06/14 01:35 Visit Medications: Current Medications Acetaminophen (Acetaminophen 325 Mg Tab) 650 mg PO Q6H PRN PRN Reason: Headache/Fever Or Mild Pain Hydrocodone Bitart/Acetaminophen (Hydrocodone/Acetaminophen 5/325 Mg Tablet) 1 tab PO Q4H PRN PRN Reason: Moderate Pain (4-6) Last Admin: 05/06/20 03:59 Dose: 1 tab Documented by: Hydrocodone Bitart/Acetaminophen (Hydrocodone/Acetaminophen 5/325 Mg Tablet) 2 tab PO Q4H PRN PRN Reason: Severe Pain (7-10) Last Admin: 05/06/20 14:41 Dose: 2 tab Documented by: Al Hydroxide/Mg Hydroxide (Mag-Al 1200 Mg/1200 Mg/30 Ml Udcup) 30 ml PO Q4H PRN PRN Reason: Indigestion Albumin Human (Albumin 5% 12.5 Gm/250 Ml Bot) 12.5 gm IVPB Q6H PRN PRN Reason: To Maintain SBP> 90 mmHG Stop: 05/06/20 16:39 Last Admin: 05/06/20 09:29 Dose: 12.5 gm Documented by: Albumin Human (Albumin 5% 12.5 Gm/250 Ml Bot) 25 gm IVPB Q6H PRN PRN Reason: To Maintain SBP > 90 mmHG Stop: 05/06/20 16:39 Last Admin: 05/05/20 22:50 Dose: 25 gm Documented by: Albuterol/Ipratropium (Ipratropium/Albuterol Sulfate 3 Ml Neb) 3 ml NEB [id number] PRN PRN Reason: SOB Aspirin (Aspirin Chewable 81 Mg Tab) 81 mg PO DAILY [facility] Last Admin: 05/06/20 09:23 Dose: 81 mg Documented by: Bisacodyl (Bisacodyl 5 Mg Tab) 10 mg PO Q12H PRN PRN Reason: Constipation Bisacodyl (Bisacodyl 10 Mg Supp) 10 mg HI Q12H PRN PRN Reason: Constipation Dextrose/Water (Dextrose 50% Abboject 50 Ml Syringe) 25 gm SLOW IVP PRN PRN PRN Reason: PER HYPOGLYCEMIC PROTOCOL Famotidine (Famotidine/Pf 20 Mg/2ml Vial) 20 mg SLOW IVP Q12HR [facility] Last Admin: 05/06/20 09:23 Dose: 20 mg Documented by: Fentanyl (Fentanyl 100 Mcg/2 Ml Vial) 25 mcg SLOW IVP Q2H PRN PRN Reason: Moderate Pain (4-6) Stop: 05/07/20 15:30 Fentanyl (Fentanyl 100 Mcg/2 Ml Vial) 50 mcg SLOW IVP Q2H PRN PRN Reason: Severe Pain (7-10) Stop: 05/07/20 15:30 Last Admin: 05/05/20 20:44 Dose: 50 mcg Documented by: Glucagon (Glucagon 1 Mg/Ml Vial) 1 mg SC PRN PRN PRN Reason: PER HYPOGLYCEMIC PROTOCOL Guaifenesin/Dextromethorphan (Guaifenesin Dm 100-10/5 Ml Udcup) 15 ml PO Q4H PRN PRN Reason: Cough Hydralazine HCl (Hydralazine 20 Mg/Ml Vial) 10 mg SLOW IVP Q6H PRN PRN Reason: To Maintain SBP< 140mmHG Dopamine HCl/Dextrose (Dopamine 400 Mg/D5w 250 Ml) 250 mls @ 0 mls/hr IVPB PRN PRN; Protocol PRN Reason: To maintain SBP > 90 mmHG Hetastarch/Sodium Chloride (Hespan) 500 mls @ 0 mls/hr IVPB PRN PRN PRN Reason: To Maintain SBP > 90mmHg Stop: 05/06/20 15:30 Last Admin: 05/05/20 19:30 Dose: 500 mls Documented by: Norepinephrine Bitartrate (Levophed) 250 mls @ 0 mls/hr IVPB PRN PRN; Protocol PRN Reason: To maintain SBP > 90 mmHG Lactated Ringer's (Lactated Ringer's) 1,000 mls @ 75 mls/hr IV .[id number] [facility] Last Admin: 05/06/20 05:25 Dose: 1,000 mls Documented by: Dextrose/Water (D5w) 1,000 mls @ 0 mls/hr IV INF PRN PRN Reason: PRN HYPOGLYCEMIC PROTOCOL Milrinone Lactate/Dextrose 20 (mg/ Device) 100 mls @ 0 mls/hr IV INF JOSÉ MIGUEL; Protocol Insulin Human Regular (Insulin Regular 300 Units/3 Ml Vial) 0 units SC Q4H PRN; Protocol PRN Reason: POST OP SLIDING SCALE Last Admin: 05/05/20 20:56 Dose: 2 unit Documented by: Ketorolac Tromethamine (Ketorolac Tromethamine 30 Mg/Ml Vial) 15 mg IVP Q6HR [facility] Stop: 05/07/20 18:01 Last Admin: 05/06/20 12:56 Dose: 15 mg Documented by: Ondansetron HCl (Ondansetron Pf 4 Mg/2 Ml Vial) 4 mg IVP Q6H PRN PRN Reason: Nausea/Vomiting Potassium Chloride (Potassium Chloride 20 Meq/100 Ml Premix Bag) 20 meq IVPB PRN PRN PRN Reason: K level </= 4.0 Promethazine HCl (Promethazine Hcl 25 Mg/Ml Vial) 6.25 mg IM Q4H PRN PRN Reason: Nausea/Vomiting Simvastatin (Simvastatin 20 Mg Tab) 20 mg PO QPM [facility] Last Admin: 05/05/20 21:05 Dose: Not Given Documented by: Vital Signs & Weight: Vital Signs Temp Pulse Ox 05/06/20 12:00 98.3 F 05/06/20 11:26 93 L 05/06/20 08:00 97.9 F 93 L 05/06/20 07:55 97 05/06/20 04:15 93 L 05/06/20 04:00 98.0 F Weight 141 lb 8.588 oz - Physical Exam General: alert & oriented x3 HEENT: mucus membranes moist Neck: supple neck Cardiac: regular rate and rhythm Lungs: clear to auscultation Neuro: grossly intact Abdomen: active bowel sounds Extremities: 1+ LE edema Skin: clear Musculoskeletal: normal range of motion - Labs Result Diagrams: 05/06/20 04:16 05/06/20 04:16 Troponin/CKMB CK-MB (CK-2) 1.5 ng/mL (0-6.6) 05/03/20 05:07 Troponin I 0.281 ng/mL (< 0.028) H 05/03/20 10:53 - Telemetry Sinus rhythms and dysrhythmias: sinus rhythm - Assessment/Plan Assessment/Plan: 1. Severe multivessel CAD 2. S/P CABG 3. Ischemic CM EF pre bypass 25-30% PLAN: - Wean levophed as tolerated - Start PT once tolerated - Pain control - ASA/Statin - BB and ACEI once BP allows.
--- NOTE | 2020-05-06 16:32 | RAD ---
RADIOGRAPH CHEST 1 VIEW: DATE: 05/06/2020 TIME: 5:56 AM HISTORY: 54-year-old male status post open heart surgery COMPARISON: 05/05/2020 FINDINGS: Again noted is the right subclavian central vascular catheter which crosses the midline of the upper mediastinum, with distal tip overlying the proximal descending thoracic aorta and region of left pulmonic trunk. 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 There are bilateral pleural effusions. There has been interval worsening of diffuse bilateral mild to moderate mixed interstitial and alveol ar groundglass infiltrates. Sternotomy wires. No pneumothorax. Consolidation at left lower lobe base is probably atelectasis. Sternotomy wires. Midline mediastinal tube. There is a thin, curvilinear, approximately 3.5 cm long foreign body overlapping the midline at the l evel of the upper heart or lower mediastinum. This was present on positron yesterday, but not on 05/03/2020 IMPRESSION: 1) thin curvilinear foreign body overlying the mid chest. Exact location is uncertain. It is possible that this could be a surgical needle. Recommend noncontrast chest CT for further evaluation. 2) right subclavian central vascular catheter distal tip is either within the anomalous left-sided de la torre perior vena cava, or descending thoracic aorta. The former is favored. This could also be confirmed with noncontrast chest CT. 3) bilateral pleural effusions. 4) cardiomegaly. 5) recently status post coronary artery bypass graft surgery. 6) left lower lobe atelectasis. 7) diffuse bilateral groundglass infiltrates, nonspecific, but COVID 19 pneumonia is a possibility.
[2020-05-06] MEDS: Simvastatin 20 MG TAB PO SCH (21:30)
[2020-05-06] MEDS: Insulin Regular 300 UNITS/3 ML VIAL SC PRN (21:43)
[2020-05-07] MEDS: Insulin Regular 300 UNITS/3 ML VIAL SC PRN ×2 (01:35→18:19)
[2020-05-07] MEDS: HYDROcodone/Acetaminophen 5/325 mg Tablet PO PRN (04:29)
[2020-05-07 05:13] LABS: #Basophils 0.1 thou/uL (0.0-0.2); #Lymphocytes 2.4 thou/uL (1.20-3.40); #Monocytes 0.8 thou/uL (0.11-0.59); #Neutrophils 7.2 thou/uL (1.40-6.50); %Basophils 0.6 % (0.0-1.0); %Eosinophils 0.3 % (0.0-10.0); %Lymphocytes 22.7 % (21.0-51.0); %Monocytes 7.2 % (0.0-10.0); %Neutrophils 69.2 % (42.0-75.0); Hemoglobin 9.5 g/dL (14.0-18.0); Mean Corpuscular HGB CONC 32.5 g/dL (32.0-36.0); Mean Corpuscular Hemoglobin 29.1 pg (27.0-31.0); Mean Corpuscular Volume 89.6 fL (78.0-98.0); Mean Platelet Volume 9.2 fL (7.4-10.4); Platelet Count 130 thou/uL (130-400); RBC Distribution Width 12.9 % (11.5-14.5); Red Blood Cell (RBC) Count 3.25 mill/uL (4.70-6.10); White Blood Cell (WBC) Count 10.4 thou/uL (4.8-10.8)
[2020-05-07 05:33] LABS: Anion Gap 10 mmol/L (10-20); BUN (Urea Nitrogen) 12 mg/dL (8.4-25.7); Calc. Creatinine Clearance 113 mL/min (70-130); Calcium 7.7 mg/dL (7.8-10.44); Carbon Dioxide 25 mmol/L (22-29); Chloride 105 mmol/L (98-107); Glucose 112 mg/dL (70-105); Magnesium 1.7 mg/dL (1.6-2.6); Potassium 3.6 mmol/L (3.5-5.1); Sodium 136 mmol/L (136-145)
[2020-05-07] MEDS: Ketorolac Tromethamine 30 MG/ML VIAL IVP SCH ×3 (06:15→17:47)
--- NOTE | 2020-05-07 06:52 | OP ---
DATE OF PROCEDURE: 05/05/2020 PREOPERATIVE DIAGNOSIS: Severe coronary artery disease with congestive heart failure. POSTOPERATIVE DIAGNOSIS: Severe coronary artery disease with congestive heart failure. PROCEDURE PERFORMED: Coronary artery bypass graft x3: Left internal mammary artery to a 2-mm left anterior descending at the takeoff of a diagonal; saphenous vein graft, good quality, to a 2-mm obtuse marginal and a 1.5-mm posterior descending artery. CLINICAL ASSOCIATE: Dr. Beaulieu. TRANSFUSION: None. DESCRIPTION OF PROCEDURE: After adequate anesthesia had been obtained, the patient was prepped and draped and I performed a median sternotomy while Dr. Beaulieu performed an endovascular vein harvest of the left greater saphenous vein. After heparinization, the mammary was divided distally. It lie anterior to the lung and minimal amount of thymic tissue. The aorta was under the right hemisternum and was cannulated as was the right atrium and cardiopulmonary bypass was begun. The entire anterior wall of the left ventricle was akinetic. Aorta was cross-clamped, and after a liter of cold blood cardioplegia, the OM was opened and saphenous vein anastomosed here. Ultimately, a single suture was required in the toe of the anastomosis prior to coming off bypass. The PDA was opened and a separate end-to-side anastomosis completed here and then finally the LAD was opened at the takeoff of the diagonal and LOMELI to LAD anastomosis completed. The cross-clamp was removed and the partial occluding clamp placed and 2 vein grafts were performed on the aortic root. The OM vein graft had to be lengthened slightly with little interposition graft because when the heart filled up, it was too short to comfortably reach the aorta. Following completion of this, the grafts laid nicely in the pericardium. He was weaned from cardiopulmonary bypass with Milrinone, Levophed, and nitroglycerin. Cannula was removed and protamine given systemically and the aortic cannulation site was secured with a Prolene suture. Mediastinal drains x2 were placed, following which the sternum was reapproximated with #7 interrupted wire. Subcutaneous tissues and skin closed in layers using vancomycin paste on the sternal edges, platelet-rich blood, and platelet-poor plasma. Job ID: [id number]
[2020-05-07] MEDS ORDERED: Potassium Chloride 20 MEQ TAB PO SCH (08:30)
[2020-05-07] MEDS ORDERED: Magnesium 2 GM/50 ML 2 GM in Premix Bag 1 BAG IVPB SCH (09:00)
[2020-05-07] MEDS: Aspirin Chewable 81 MG TAB PO SCH (09:12)
[2020-05-07] MEDS: Furosemide 40 MG TAB PO SCH (09:12)
--- NOTE | 2020-05-07 10:48 | RAD ---
EXAM: Chest one view: HISTORY: Postop open heart surgery COMPARISON: 05/06/2020 FINDINGS: Minimal cardiomegaly with bilateral vascular congestion and patchy alveolar and interstitial parenchy mal changes in the perihilar regions with evidence for left pleural effusion. Again noted is a somewhat curvilinear, linear opacity overlying the mid chest and left-sided main bronchus region. No evidence for pneumothorax. IMPRESSION: Overall stable appearing chest. Continued short-term follow-up.
--- NOTE | 2020-05-07 14:42 | PDOC.CPN ---
- Subjective Date: 05/07/20 Time: 14:41 Interval history: Doing better today. No new issues. Sore chest. - Review of Systems General: denies: fever/chills, weight/appetite/sleep changes, night sweats, fatigue Respiratory: denies: cough, congestion, shortness of breath, exercise intolerance Cardiovascular: reports: chest pain. denies: palpitation, edema, paroxysmal nocturnal dyspnea, orthopnea Gastrointestinal: denies: nausea, vomiting, diarrhea, constipation, abd pain, GI bleeding Musculoskeletal: denies: pain, tenderness, stiffness, swelling, arthri tis/arthralgias Neurological: denies: numbness, syncope, seizure, weakness - Objective Allergies/Adverse Reactions: Allergies Allergy/AdvReac Type Severity Reaction Status Date / Time No Known Drug Allergies Allergy Verified 10/06/14 01:35 Visit Medications: Current Medications Acetaminophen (Acetaminophen 325 Mg Tab) 650 mg PO Q6H PRN PRN Reason: Headache/Fever Or Mild Pain Hydrocodone Bitart/Acetaminophen (Hydrocodone/Acetaminophen 5/325 Mg Tablet) 1 tab PO Q4H PRN PRN Reason: Moderate Pain (4-6) Last Admin: 05/07/20 04:29 Dose: 1 tab Documented by: Hydrocodone Bitart/Acetaminophen (Hydrocodone/Acetaminophen 5/325 Mg Tablet) 2 tab PO Q4H PRN PRN Reason: Severe Pain (7-10) Last Admin: 05/06/20 14:41 Dose: 2 tab Documented by: Al Hydroxide/Mg Hydroxide (Mag-Al 1200 Mg/1200 Mg/30 Ml Udcup) 30 ml PO Q4H PRN PRN Reason: Indigestion Albuterol/Ipratropium (Ipratropium/Albuterol Sulfate 3 Ml Neb) 3 ml NEB [id number] PRN PRN Reason: SOB Aspirin (Aspirin Chewable 81 Mg Tab) 81 mg PO DAILY JOSÉ MIGUEL Last Admin: 05/07/20 09:12 Dose: 81 mg Documented by: Atorvastatin Calcium (Atorvastatin Calcium 10 Mg Tab) 10 mg PO HS JOSÉ MIGUEL Bisacodyl (Bisacodyl 5 Mg Tab) 10 mg PO Q12H PRN PRN Reason: Constipation Last Admin: 05/07/20 04:32 Dose: 10 mg Documented by: Bisacodyl (Bisacodyl 10 Mg Supp) [address] Q12H PRN PRN Reason: Constipation Dextrose/Water (Dextrose 50% Abboject 50 Ml Syringe) 25 gm SLOW IVP PRN PRN PRN Reason: PER HYPOGLYCEMIC PROTOCOL Fentanyl (Fentanyl 100 Mcg/2 Ml Vial) 25 mcg SLOW IVP Q2H PRN PRN Reason: Moderate Pain (4-6) Stop: 05/07/20 15:30 Fentanyl (Fentanyl 100 Mcg/2 Ml Vial) 50 mcg SLOW IVP Q2H PRN PRN Reason: Severe Pain (7-10) Stop: 05/07/20 15:30 Last Admin: 05/05/20 20:44 Dose: 50 mcg Documented by: Furosemide (Furosemide 40 Mg Tab) 40 mg PO DAILY[facility] Last Admin: 05/07/20 09:12 Dose: 40 mg Documented by: Glucagon (Glucagon 1 Mg/Ml Vial) 1 mg SC PRN PRN PRN Reason: PER HYPOGLYCEMIC PROTOCOL Guaifenesin/Dextromethorphan (Guaifenesin Dm 100-10/5 Ml Udcup) 15 ml PO Q4H PRN PRN Reason: Cough Hydralazine HCl (Hydralazine 20 Mg/Ml Vial) 10 mg SLOW IVP Q6H PRN PRN Reason: To Maintain SBP< 140mmHG Dopamine HCl/Dextrose (Dopamine 400 Mg/D5w 250 Ml) 250 mls @ 0 mls/hr IVPB PRN PRN; Protocol PRN Reason: To maintain SBP > 90 mmHG Norepinephrine Bitartrate (Levophed) 250 mls @ 0 mls/hr IVPB PRN PRN; Protocol PRN Reason: To maintain SBP > 90 mmHG Dextrose/Water (D5w) 1,000 mls @ 0 mls/hr IV INF PRN PRN Reason: PRN HYPOGLYCEMIC PROTOCOL Insulin Human Regular (Insulin Regular 300 Units/3 Ml Vial) 0 units SC Q4H PRN; Protocol PRN Reason: POST OP SLIDING SCALE Last Admin: 05/07/20 01:35 Dose: 2 unit Documented by: Ketorolac Tromethamine (Ketorolac Tromethamine 30 Mg/Ml Vial) 15 mg IVP Q6HR [facility] Stop: 05/07/20 18:01 Last Admin: 05/07/20 12:06 Dose: 15 mg Documented by: Ondansetron HCl (Ondansetron Pf 4 Mg/2 Ml Vial) 4 mg IVP Q6H PRN PRN Reason: Nausea/Vomiting Pantoprazole Sodium (Pantoprazole 40 Mg Tab) 40 mg PO DAILY [facility] Last Admin: 05/07/20 09:12 Dose: 40 mg Documented by: Potassium Chloride (Potassium Chloride 20 Meq/100 Ml Premix Bag) 20 meq IVPB PRN PRN PRN Reason: K level </= 4.0 Potassium Chloride (Potassium Chloride 20 Meq Tab) 20 meq PO BID[facility] Stop: 05/08/20 08:01 Promethazine HCl (Promethazine Hcl 25 Mg/Ml Vial) 6.25 mg IM Q4H PRN PRN Reason: Nausea/Vomiting Vital Signs & Weight: Vital Signs Temp Pulse Ox 05/07/20 12:00 98.3 F 05/07/20 08:00 99.4 F 95 05/07/20 04:00 98.0 F 92 L Weight 144 lb 2.917 oz - Physical Exam General: alert & oriented x3 HEENT: mucus membranes moist Neck: supple neck Cardiac: regular rate and rhythm Lungs: clear to auscultation Neuro: grossly intact Abdomen: active bowel sounds Extremities: no edema Skin: clear - Labs Result Diagrams: 05/07/20 03:30 05/07/20 03:30 Troponin/CKMB CK-MB (CK-2) 1.5 ng/mL (0-6.6) 05/03/20 05:07 Troponin I 0.281 ng/mL (< 0.028) H 05/03/20 10:53 - Telemetry Sinus rhythms and dysrhythmias: sinus rhythm - Assessment/Plan Assessment/Plan: 1. Severe multivessel CAD 2. S/P CABG 3. Ischemic CM EF pre bypass 25-30% PLAN: - Off levophed since this morning. - Start PT once tolerated - Pain control - ASA/Statin - BB and ACEI once BP allows, still too low at this time.
[2020-05-07] MEDS: Potassium Chloride 20 MEQ TAB PO SCH (17:46)
[2020-05-07] MEDS: Atorvastatin Calcium 10 MG TAB PO SCH (20:44)
[2020-05-07] MEDS: Acetaminophen 325 MG TAB PO PRN (20:46)
--- NOTE | 2020-05-07 21:13 | PDOC.HOSPP ---
- Subjective Encounter Date: 05/07/20 Encounter Time: 14:00 Subjective: Patient seen and examined for non-ST elevation SC/new-onset CHF. Denies any new complaints. Chest tube removed earlier today. - Objective Vital Signs & Weight: Vital Signs (12 hours) Temp Pulse Ox 05/07/20 19:57 98 05/07/20 19:00 98.5 F 05/07/20 16:00 98.5 F 05/07/20 12:00 98.3 F Weight Weight 144 lb 2.917 oz Most Recent Monitor Data Heart Rate from ECG 81 NIBP 105/60 NIBP BP-Mean 75 Respiration from ECG 10 SpO2 97 I&O: 05/06/20 05/07/20 05/08/20 06:59 06:59 06:59 Intake Total 1991.6 3699.1 1010 Output Total 1445 1253 1105 Balance 546.6 2446.1 -95 Result Diagrams: 05/07/20 03:30 05/07/20 03:30 Additional Labs: Accuchecks 05/07/20 05/07/20 05/07/20 20:42 18:13 01:32 POC Glucose 119 H 160 H 131 H 05/06/20 21:33 POC Glucose 135 H Abnormal Lab Results - Last 48 hrs 05/05/20 21:00: Hgb 10.4 L, Hct 32.3 L 05/05/20 22:00: Bicarbonate Actual 21.2 L, ABG pCO2 33.9 L, ABG pO2 125.0 H, ABG O2 Sat (Measured) 98.4 H, ABG O2 Content 15.3 L, ABG Base Excess -2.7 L, ABG Hematocrit 32.0 L, ABG Hemoglobin 11.0 L, A-a O2 Gradient 117.825 H, Potassium 3.61 L, Chloride 111 H, Ionized Calcium 1.04 L 05/06/20 04:16: Chloride 109 H, Creatinine 0.62 L, Calcium 7.5 L 05/06/20 04:16: RBC 3.23 L, Hgb 9.6 L, Hct 29.4 L, Lymphocytes % (Manual) 17 L 05/07/20 03:30: Creatinine 0.68 L, Calcium 7.7 L 05/07/20 03:30: RBC 3.25 L, Hgb 9.5 L, Hct 29.1 L, Neutrophils # 7.2 H, Monocytes # 0.8 H EKG Reviewed by me: Yes (Sinus rhythm on telemetry) Hospitalist ROS - Review of Systems Respiratory: denies: cough, dry, shortness of breath, hemoptysis, SOB with excertion, pleuritic pain, sputum, wheezing, other Cardiovascular: denies: chest pain, palpitations, orthopnea, paroxysmal noc. dyspnea, edema, light headedness, other - Medication Medications: Active Medications Generic Name Dose Route Start Last Admin Trade Name Freq PRN Reason Stop Dose Admin Acetaminophen 650 mg 05/05/20 16:38 05/07/20 20:46 Acetaminophen 325 Mg Tab PO 650 mg Q6H PRN Administration Headache/Fever Or Mild Pain Hydrocodone Bitart/Acetaminophen 1 tab 05/05/20 16:38 05/07/20 04:29 Hydrocodone/Acetaminophen 5/325 Mg Tablet PO 1 tab Q4H PRN Administration Moderate Pain (4-6) Hydrocodone Bitart/Acetaminophen 2 tab 05/05/20 16:38 05/06/20 14:41 Hydrocodone/Acetaminophen 5/325 Mg Tablet PO 2 tab Q4H PRN Administration Severe Pain (7-10) Aspirin 81 mg 05/06/20 09:00 05/07/20 09:12 Aspirin Chewable 81 Mg Tab PO 81 mg DAILY JOSÉ MIGUEL Administration Atorvastatin Calcium 10 mg 05/07/20 21:00 05/07/20 20:44 Atorvastatin Calcium 10 Mg Tab PO 10 mg HS JOSÉ MIGUEL Administration Bisacodyl 10 mg 05/05/20 16:38 05/07/20 04:32 Bisacodyl 5 Mg Tab PO 10 mg Q12H PRN Administration Constipation Furosemide 40 mg 05/07/20 07:30 05/07/20 09:12 Furosemide 40 Mg Tab PO 40 mg DAILY-AC JOSÉ MIGUEL Administration Insulin Human Regular 0 units 05/05/20 17:15 05/07/20 18:19 Insulin Regular 300 Units/3 Ml Vial SC 3 unit Q4H PRN Administration POST OP SLIDING SCALE Protocol Pantoprazole Sodium 40 mg 05/07/20 09:00 05/07/20 09:12 Pantoprazole 40 Mg Tab PO 40 mg DAILY JOSÉ MIGUEL Administration Potassium Chloride 20 meq 05/07/20 17:00 05/07/20 17:46 Potassium Chloride 20 Meq Tab PO 05/08/20 08:01 20 meq BID-[facility] Administration Hospitalist Exam Vitals: Vital Signs (12 hours) Temp Pulse Ox 05/07/20 19:57 98 05/07/20 19:00 98.5 F 05/07/20 16:00 98.5 F 05/07/20 12:00 98.3 F Weight Weight 144 lb 2.917 oz Most Recent Monitor Data Heart Rate from ECG 81 NIBP 105/60 NIBP BP-Mean 75 Respiration from ECG 10 SpO2 97 General Appearance: awake alert Neck: supple, no JVD Heart: RRR, no gallops, no rubs Respiratory: no wheezes, no rales, no ronchi, normal chest expansion Gastrointestinal: soft, non-tender, non-distended, no guarding, no rigidity Extremities: no cyanosis, no clubbing Neurological: no new deficit Musculoskeletal: generalized weakness Psychiatric: normal affect, A&O x 3 Hosp A/P - Plan DVT proph w/SCDs 54-year-old male with hypertension, diabetes mellitus type 2, hyperlipidemia and CVA in the past presented to the hospital with shortness of breath on 05/03. He was started on noninvasive positive pressure ventilation for respiratory failure/new onset congestive heart failure. His BNP on admission was 911.4 with elevated troponin of 0.281.. He was started on IV diuretics along with O2 supplementation. Patient was evaluated by cardiology Dr. Mahoney who recommended cardiac catheterization on 05/05 that showed three-vessel disease with ejection fraction of approximately 10 to 15% requiring emergent coronary artery bypass grafting that was performed on the same day. Impression: Acute hypoxic respiratory failure due to acute systolic heart failure exacerbation Non-ST elevation SC probably due to demand ischemia Hypertension Diabetes mellitus type 2 Hyperlipidemia History of CVA Chronic anemia probably due to nutritional deficiency Hypomagnesemia Plan: Continue Critical Care Unit monitoring. Continue aspirin with statin. Off Levophed. Will start JUHI inhibitor/beta isaak once blood pressure improves. Pain control. Replace magnesium. Add potassium replacement. Continue other medications as above
[2020-05-08] MEDS: Acetaminophen 325 MG TAB PO PRN (05:12)
[2020-05-08] MEDS: Furosemide 40 MG TAB PO SCH ×3 (07:43→21:51)
[2020-05-08] MEDS: Potassium Chloride 20 MEQ TAB PO SCH (07:44)
[2020-05-08] MEDS ORDERED: Mineral Oil ENEMA PR PRN (08:40)
[2020-05-08] MEDS ORDERED: Nitroglycerin 0.4 MG TAB (25 Tab Bottle) SL PRN (08:40)
--- NOTE | 2020-05-08 08:44 | RAD ---
Portable frontal chest radiograph: 05/08/2020 COMPARISON: 05/07/2020 HISTORY: Evaluate chest following open heart surgery FINDINGS: Stable midline sternotomy wires. No pneumothorax is evident. Stable right vascular catheter . Dense pleural and parenchymal opacity noted in the left lung base, similar when compared to 05/07/2020. Patchy opacity again noted in the medial right base, improved. The postsurgical drains overlying the midline mediastinum have been removed. IMPRESSION: Portable chest radiograph as detailed above.
--- NOTE | 2020-05-08 09:36 | PRG ---
DATE OF SERVICE: 05/08/2020 SUBJECTIVE: Mr. Cueto is sitting up in a chair. He says he has already done some walking. He feels well. OBJECTIVE: VITAL SIGNS: His blood pressure 110/73, 130/70, pulse 80. He did have a blood pressure earlier this morning over 104/68 and even of 96/74. LUNGS: Clear. CARDIAC: Normal S1, normal S2. ABDOMEN: Soft and nontender. EXTREMITIES: No edema. ASSESSMENT: 1. 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 2. Congestive heart failure, systolic, acute on chronic. 3. Relatively low blood pressure. PLAN: 1. Start carvedilol this afternoon. 2. We will consult for LifeVest at the time of discharge. 3. Ambulation today. 4. Potassium 3.6 this morning. We will give extra potassium if needed tomorrow. He is going to get potassium this morning. I will give another dose this evening. Job ID: [id number]
[2020-05-08] MEDS: Docusate 100 MG CAP PO SCH ×2 (10:09→21:51)
[2020-05-08] MEDS: Famotidine 20 MG TAB PO SCH ×2 (10:09→21:52)
[2020-05-08] MEDS: Aspirin Chewable 81 MG TAB PO SCH (10:09)
[2020-05-08] MEDS ORDERED: Dextrose 5% in Water 1,000 ML IV PRN (11:50)
[2020-05-08] MEDS ORDERED: Insulin Regular 300 UNITS/3 ML VIAL SC PRN ×2 (11:50)
[2020-05-08] MEDS ORDERED: Dextrose 50% Abboject 50 ML SYRINGE SLOW IVP PRN (11:50)
[2020-05-08] MEDS: HYDROcodone/Acetaminophen 5/325 mg Tablet PO PRN ×2 (13:57→21:52)
[2020-05-08] MEDS: Carvedilol 3.125 MG TAB PO SCH (16:27)
[2020-05-08] MEDS ORDERED: Potassium Chloride 20 MEQ TAB PO SCH (17:00)
--- NOTE | 2020-05-08 17:09 | EKG ---
Test Reason : Blood Pressure : / mmHG Vent. Rate : 101 BPM Atrial Rate : 101 BPM P-R Int : 146 ms QRS Dur : 094 ms QT Int : 370 ms P-R-T Axes : 000 -17 205 degrees QTc Int : 479 ms Sinus tachycardia Septal infarct (cited on or before 03-MAY-2020) Abnormal ECG When compared with ECG of 03-MAY-2020 05:00, (Unconfirmed) Serial changes of evolving Septal infarct Present Confirmed by DR. Jose Guadalupe BETH ([id number]) on 05/08/2020 5:09:51 PM Referred By: ROS Confirmed By:DR. Jose Guadalupe BETH
[2020-05-08] MEDS: Atorvastatin Calcium 10 MG TAB PO SCH (21:51)
--- NOTE | 2020-05-08 22:47 | PDOC.HOSPP ---
- Subjective Encounter Date: 05/08/20 Encounter Time: 11:30 Subjective: Patient seen and examined for CHF/coronary artery disease requiring coronary artery bypass grafting. Some discomfort over the surgical site. Denies any chest pain, syncope or palpitations. - Objective Vital Signs & Weight: Vital Signs (12 hours) Temp Pulse Pulse Pulse Resp BP BP 05/08/20 15:33 98.9 F 73 16 05/08/20 12:02 98.8 F 81 16 05/08/20 11:03 82 79 122/71 127/76 BP BP Pulse Ox 05/08/20 15:33 104/65 92 L 05/08/20 12:02 125/73 95 05/08/20 11:03 Weight Weight 148 lb 3.2 oz Most Recent Monitor Data Heart Rate from ECG 77 NIBP 112/76 NIBP BP-Mean 88 Respiration from ECG 26 SpO2 99 I&O: 05/07/20 05/08/20 05/09/20 06:59 06:59 06:59 Intake Total 3699.1 1230 875 Output Total 1253 1650 1155 Balance 2446.1 -420 -280 Result Diagrams: 05/07/20 03:30 05/07/20 03:30 Additional Labs: Accuchecks 05/08/20 05/08/20 05/08/20 21:01 16:29 10:47 POC Glucose 185 H 136 H 172 H 05/08/20 05/05/20 05/05/20 06:02 18:02 15:22 POC Glucose 124 H 147 H 173 H 05/05/20 05/05/20 05/05/20 13:39 13:22 12:23 POC Glucose 147 H 149 H 109 H EKG Reviewed by me: Yes (Sinus rhythm on telemetry) Hospitalist ROS - Review of Systems Cardiovascular: denies: chest pain, palpitations, orthopnea, paroxysmal noc. dyspnea, edema, light headedness, other Gastrointestinal: denies: nausea, vomiting, abdominal pain, diarrhea, constipation, melena, hematochezia, other - Medication Medications: Active Medications Generic Name Dose Route Start Last Admin Trade Name Freq PRN Reason Stop Dose Admin Acetaminophen 650 mg 05/05/20 16:38 05/08/20 05:12 Acetaminophen 325 Mg Tab PO 650 mg Q6H PRN Administration Headache/Fever Or Mild Pain Hydrocodone Bitart/Acetaminophen 1 tab 05/05/20 16:38 05/08/20 21:52 Hydrocodone/Acetaminophen 5/325 Mg Tablet PO 1 tab Q4H PRN Administration Moderate Pain (4-6) Aspirin 81 mg 05/06/20 09:00 05/08/20 10:09 Aspirin Chewable 81 Mg Tab PO 81 mg DAILY JOSÉ MIGUEL Administration Atorvastatin Calcium 10 mg 05/07/20 21:00 05/08/20 21:51 Atorvastatin Calcium 10 Mg Tab PO 10 mg HS JOSÉ MIGUEL Administration Bisacodyl 10 mg 05/05/20 16:38 05/07/20 04:32 Bisacodyl 5 Mg Tab PO 10 mg Q12H PRN Administration Constipation Carvedilol 3.125 mg 05/08/20 17:00 05/08/20 16:27 Carvedilol 3.125 Mg Tab PO Not Given BID-WM JOSÉ MIGUEL Docusate Sodium 100 mg 05/08/20 09:00 05/08/20 21:51 Docusate 100 Mg Cap PO 100 mg BID JOSÉ MIGUEL Administration Famotidine 20 mg 05/08/20 09:00 05/08/20 21:52 Famotidine 20 Mg Tab PO 20 mg BID JOSÉ MIGUEL Administration Furosemide 40 mg 05/08/20 09:00 05/08/20 21:51 Furosemide 40 Mg Tab PO 40 mg BID JOSÉ MIGUEL Administration Guaifenesin/Dextromethorphan 15 ml 05/05/20 16:38 05/08/20 08:15 Guaifenesin Dm 100-10/5 Ml Udcup PO 15 ml Q4H PRN Administration Cough Insulin Human Regular 0 units 05/08/20 11:50 05/08/20 12:14 Insulin Regular 300 Units/3 Ml Vial SC 2 unit .MILD SLIDING SCALE PRN Administration Mild Correctional Scale Sodium Chloride 10 ml 05/08/20 21:00 05/08/20 21:53 Flush - Normal Saline 10 Ml Syringe IVF 10 ml Q12HR JOSÉ MIGUEL Administration Hospitalist Exam Vitals: Vital Signs (12 hours) Temp Pulse Pulse Pulse Resp BP BP 05/08/20 15:33 98.9 F 73 16 05/08/20 12:02 98.8 F 81 16 05/08/20 11:03 82 79 122/71 127/76 BP BP Pulse Ox 05/08/20 15:33 104/65 92 L 05/08/20 12:02 125/73 95 02/01/21 11:03 Weight Weight 148 lb 3.2 oz Most Recent Monitor Data Heart Rate from ECG 77 NIBP 112/76 NIBP BP-Mean 88 Respiration from ECG 26 SpO2 99 General Appearance: awake alert Neck: supple, no JVD Heart: no gallops, no rubs Respiratory: no wheezes, no ronchi Gastrointestinal: soft, non-distended Extremities: no cyanosis Neurological: no weakness Hosp A/P - Plan DVT proph w/SCDs 54-year-old male with hypertension, diabetes mellitus type 2, hyperlipidemia and CVA in the past presented to the hospital with shortness of breath on 05/03. He was started on noninvasive positive pressure ventilation for respiratory failure/new onset congestive heart failure. His BNP on admission was 911.4 with elevated troponin of 0.281.. He was started on IV diuretics along with O2 supplementation. Patient was evaluated by cardiology Dr. Mahoney who recommended cardiac catheterization on 05/05 that showed three-vessel disease with ejection fraction of approximately 10 to 15% requiring emergent coronary artery bypass grafting that was performed on the same day. Impression: Acute hypoxic respiratory failure due to acute systolic heart failure exacerbation Non-ST elevation [place] probably due to demand ischemia Hypertension Diabetes mellitus type 2 Hyperlipidemia History of CVA Chronic anemia probably due to nutritional deficiency Hypomagnesemia Plan: Continue supportive care. Vital signs stable. Continue cardiac rehab. Continue aspirin with statins. Started on diuretics. Low-dose carvedilol with holding parameters. A.m. labs. Continue to monitor blood sugar. Add sliding scale. Co ntinue other medications as above 05/07 Continue Critical Care Unit monitoring. Continue aspirin with statin. Off Levophed. Will start JUHI inhibitor/beta isaak once blood pressure improves. Pain control. Replace magnesium. Add potassium replacement. Continue other medications as above
[2020-05-09 04:52] LABS: Anion Gap 11 mmol/L (10-20); BUN (Urea Nitrogen) 10 mg/dL (8.4-25.7); Calc. Creatinine Clearance 115 mL/min (70-130); Calcium 8.2 mg/dL (7.8-10.44); Carbon Dioxide 28 mmol/L (22-29); Chloride 103 mmol/L (98-107); Glucose 116 mg/dL (70-105); Magnesium 1.7 mg/dL (1.6-2.6); Potassium 3.8 mmol/L (3.5-5.1); Sodium 138 mmol/L (136-145)
[2020-05-09] MEDS ORDERED: AFRIN NASAL MIST 15 ML BOT NS PRN (07:10)
--- NOTE | 2020-05-09 07:37 | PRG ---
DATE OF SERVICE: 05/09/2020 SUBJECTIVE: The patient's blood pressure over the past 24 hours has been 100 to 110. His dose of Coreg was held yesterday evening. His Is and Os were about equal for the past 24 hours after increasing his Lasix to an oral dose twice a day. His primary complaint today is he did not rest well last night due to coughing from phlegm in the back of his throat. OBJECTIVE: On exam today, he is awake and alert. His lungs are clear. His chest incision is clean and dry and he has no edema. His weight is about 143 pounds which is still about 5 to 6 pounds over his preoperative weight. We will add some spironolactone for his diuresis and poor LV function, as well as some Zyrtec and Afrin nasal spray in regard to his probable sinus drainage. I do not think he is in overt heart failure as a cause for his cough at this time. Continue his other medications. Job ID: [id number]
[2020-05-09] MEDS ORDERED: Cetirizine HCl 10 MG TAB PO SCH (09:00)
[2020-05-09] MEDS: Lisinopril 2.5 MG TAB PO SCH (09:05)
[2020-05-09] MEDS: HYDROcodone/Acetaminophen 5/325 mg Tablet PO PRN ×2 (09:08→20:42)
[2020-05-09] MEDS: Carvedilol 3.125 MG TAB PO SCH ×2 (09:09→16:57)
[2020-05-09] MEDS: Aspirin Chewable 81 MG TAB PO SCH (09:09)
[2020-05-09] MEDS: Furosemide 40 MG TAB PO SCH ×2 (09:09→20:41)
[2020-05-09] MEDS: Spironolactone 25 MG TAB PO SCH (09:10)
[2020-05-09] MEDS: Famotidine 20 MG TAB PO SCH ×2 (09:11→20:41)
[2020-05-09] MEDS: Loratadine 10 MG TAB PO SCH (09:11)
[2020-05-09] MEDS: Docusate 100 MG CAP PO SCH ×2 (09:11→20:41)
[2020-05-09] MEDS: Oxymetazoline HCl 0.05% (30 ML BOT) NS PRN ×2 (10:27→20:39)
[2020-05-09] MEDS ORDERED: Magnesium 2 GM/50 ML 2 GM in Premix Bag 1 BAG IVPB SCH (10:30)
[2020-05-09 14:26] LABS: Actual Bicarbonate (HCO3v) 23 mEq/L (22-28); Analyzer IN Cardio OR; Calcium, Ionized (venous) 0.95 mmol/L (1.16-1.32); Chloride (VBG) 107 mmol/L (98-106); Hemoglobin (Hb) 8.9 g/dL (13.1-17.2); Potassium (VBG) 4.36 mmol/L (3.70-5.30); pH (venous) 7.51 (7.32-7.43)
[2020-05-09 14:26] LABS: Actual Bicarbonate (HCO3a) 19.8 mEq/L (22-28); Analyzer IN Cardio OR; Base Excess (BEa) -4.5 mEq/L (-2.0 to +3.0); CO2 Tension 33.8 mmHg (35.0-45.0); Calcium, Ionized (arterial) 1.14 mmol/L (1.12-1.30); Carboxyhemoglobin (COHb) 0.1 gm% (0.0-3.0); Hemoglobin (Hb) 11.2 g/dL (14.0-18.0); O2 Tension (PaO2), arterial 94.1 mmHg (80.0-100.0); Potassium - ABG Lab 3.95 mmol/L (3.70-5.30); pH, Arterial 7.39 (7.35-7.45)
[2020-05-09 14:26] LABS: Analyzer IN Cardio OR; Base Excess (BEa) -1.6 mEq/L (-2.0 to +3.0); Calcium, Ionized (arterial) 0.96 mmol/L (1.12-1.30); Carboxyhemoglobin (COHb) 0.4 gm% (0.0-3.0); Hemoglobin (Hb) 9.2 g/dL (14.0-18.0); O2 Tension (PaO2), arterial 336.3 mmHg (80.0-100.0); Potassium - ABG Lab 4.35 mmol/L (3.70-5.30)
[2020-05-09 14:27] LABS: Actual Bicarbonate (HCO3a) 22.6 mEq/L (22-28); Analyzer IN Cardio OR; Base Excess (BEa) 0.1 mEq/L (-2.0 to +3.0); CO2 Tension 28.6 mmHg (35.0-45.0); Calcium, Ionized (arterial) 0.87 mmol/L (1.12-1.30); Carboxyhemoglobin (COHb) 0.5 gm% (0.0-3.0); Hemoglobin (Hb) 9.1 g/dL (14.0-18.0); O2 Tension (PaO2), arterial 362.4 mmHg (80.0-100.0); Potassium - ABG Lab 4.04 mmol/L (3.70-5.30); pH, Arterial 7.52 (7.35-7.45)
[2020-05-09 14:27] LABS: Actual Bicarbonate (HCO3a) 21.9 mEq/L (22-28); Analyzer IN Cardio OR; Base Excess (BEa) -0.6 mEq/L (-2.0 to +3.0); CO2 Tension 29.7 mmHg (35.0-45.0); Calcium, Ionized (arterial) 1.12 mmol/L (1.12-1.30); Carboxyhemoglobin (COHb) 0.3 gm% (0.0-3.0); Hemoglobin (Hb) 12.3 g/dL (14.0-18.0); O2 Tension (PaO2), arterial 100.6 mmHg (80.0-100.0); Potassium - ABG Lab 3.86 mmol/L (3.70-5.30); Puncture Site Arterial Line; pH, Arterial 7.49 (7.35-7.45)
[2020-05-09 14:27] LABS: Actual Bicarbonate (HCO3a) 21.3 mEq/L (22-28); Analyzer IN Cardio OR; Base Excess (BEa) -4.4 mEq/L (-2.0 to +3.0); Calcium, Ionized (arterial) 1.09 mmol/L (1.12-1.30); Carboxyhemoglobin (COHb) 0.1 gm% (0.0-3.0); Hemoglobin (Hb) 11.1 g/dL (14.0-18.0); O2 Tension (PaO2), arterial 296.4 mmHg (80.0-100.0); Potassium - ABG Lab 3.64 mmol/L (3.70-5.30); pH, Arterial 7.32 (7.35-7.45)
[2020-05-09 14:28] LABS: Puncture Site Arterial Line
[2020-05-09 14:29] LABS: pH, Arterial 7.59 (7.35-7.45)
[2020-05-09 14:29] LABS: Puncture Site Arterial Line
[2020-05-09 14:30] LABS: CO2 Tension 20.1 mmHg (35.0-45.0); Puncture Site Arterial Line
[2020-05-09 14:31] LABS: Puncture Site Arterial Line
--- NOTE | 2020-05-09 17:59 | PDOC.HOSPP ---
- Subjective Encounter Date: 05/09/20 Encounter Time: 10:30 Subjective: Patient seen and examined for coronary artery disease/CHF. Complains of some cough with nasal congestion. Denies any chest pain. - Objective Vital Signs & Weight: Vital Signs (12 hours) Temp Pulse Pulse Pulse Resp BP BP 05/09/20 16:51 05/09/20 15:35 98.2 F 68 16 05/09/20 13:10 73 72 105/61 100/61 05/09/20 11:33 97.9 F 71 14 05/09/20 10:08 75 05/09/20 08:53 05/09/20 08:22 86 85 124/70 114/70 05/09/20 07:33 98.2 F 78 16 BP BP Pulse Ox Pulse Ox Pulse Ox 05/09/20 16:51 91/56 L 05/09/20 15:35 92/53 L 94 L 05/09/20 13:10 05/09/20 11:33 103/69 97 05/09/20 10:08 95/60 05/09/20 08:53 92 L 05/09/20 08:22 94 L 93 L 05/09/20 07:33 102/67 92 L Weight Weight 140 lb Most Recent Monitor Data Heart Rate from ECG 77 NIBP 112/76 NIBP BP-Mean 88 Respiration from ECG 26 SpO2 99 I&O: 05/08/20 05/09/20 05/10/20 06:59 06:59 06:59 Intake Total 1230 995 Output Total 1650 1155 Balance -420 -160 Result Diagrams: 05/07/20 03:30 05/09/20 03:46 Additional Labs: Accuchecks 05/09/20 05/09/20 05/09/20 16:22 10:42 05:04 POC Glucose 152 H 140 H 121 H 05/08/20 21:01 POC Glucose 185 H Abnormal Lab Results - Last 48 hrs 05/05/20 12:01: Crossmatch See Detail 05/05/20 12:20: Bicarbonate Actual 21.9 L, ABG pH 7.49 H, ABG pCO2 29.7 L, ABG pO2 100.6 H, ABG O2 Content 17.0 L, ABG Hematocrit 36.0 L, ABG Hemoglobin 12.3 L 05/05/20 13:20: Bicarbonate Actual 21.3 L, ABG pH 7.32 L, ABG pO2 296.4 H, ABG O2 Sat (Measured) 99.6 H, ABG O2 Content 16.2 L, ABG Base Excess -4.4 L, ABG Hematocrit 33.0 L, ABG Hemoglobin 11.1 L, ABG Oxyhemoglobin 99.2 H, Potassium 3.64 L, Chloride 107 H, Ionized Calcium 1.09 L 05/05/20 13:37: ABG pH 7.52 H, ABG pCO2 28.6 L, ABG pO2 362.4 H, ABG O2 Sat (Measured) 99.6 H, ABG O2 Content 13.6 L, ABG Hematocrit 27.0 L, ABG Hemoglobin 9.1 L, ABG Oxyhemoglobin 98.8 H, Ionized Calcium 0.87 L 05/05/20 14:07: Bicarbonate Actual 19.0 L, ABG pH 7.59 H*, ABG pCO2 20.1 L*, ABG pO2 336.3 H, ABG O2 Sat (Measured) 99.5 H, ABG O2 Content 13.7 L, ABG Hematocrit 27.0 L, ABG Hemoglobin 9.2 L, ABG Oxyhemoglobin 98.8 H, Chloride 108 H, Ionized Calcium 0.96 L 05/05/20 14:13: VBG pH 7.51 H, VBG pCO2 28.7 L, VBG pO2 29.9 L, VBG Hematocrit 26.0 L, VBG Hemoglobin 8.9 L, VBG Ionized Calcium 0.95 L, Whole Bld Chloride 107 H 05/05/20 15:21: Bicarbonate Actual 19.8 L, ABG pCO2 33.8 L, ABG O2 Content 15.3 L, ABG Base Excess -4.5 L, ABG Hematocrit 33.0 L, ABG Hemoglobin 11.2 L, ABG D eoxyhemoglobin 3.4 H, Chloride 108 H EKG Reviewed by me: Yes (Sinus rhythm on telemetry) Hospitalist ROS - Review of Systems Cardiovascular: denies: chest pain, palpitations, orthopnea, paroxysmal noc. dyspnea, edema, light headedness, other Gastrointestinal: denies: nausea, vomiting, abdominal pain, diarrhea, constipation, melena, hematochezia, other - Medication Medications: Active Medications Generic Name Dose Route Start Last Admin Trade Name Freq PRN Reason Stop Dose Admin Acetaminophen 650 mg 05/05/20 16:38 05/08/20 05:12 Acetaminophen 325 Mg Tab PO 650 mg Q6H PRN Administration Headache/Fever Or Mild Pain Hydrocodone Bitart/Acetaminophen 1 tab 05/05/20 16:38 05/09/20 09:08 Hydrocodone/Acetaminophen 5/325 Mg Tablet PO 1 tab Q4H PRN Administration Moderate Pain (4-6) Aspirin 81 mg 05/06/20 09:00 05/09/20 09:09 Aspirin Chewable 81 Mg Tab PO 81 mg DAILY JOSÉ MIGUEL Administration Atorvastatin Calcium 10 mg 05/07/20 21:00 05/08/20 21:51 Atorvastatin Calcium 10 Mg Tab PO 10 mg HS JOSÉ MIGUEL Administration Bisacodyl 10 mg 05/05/20 16:38 05/07/20 04:32 Bisacodyl 5 Mg Tab PO 10 mg Q12H PRN Administration Constipation Carvedilol 3.125 mg 05/08/20 17:00 05/09/20 16:57 Carvedilol 3.125 Mg Tab PO Not Given BID- JOSÉ MIGUEL Docusate Sodium 100 mg 05/08/20 09:00 05/09/20 09:11 Docusate 100 Mg Cap PO Not Given BID JOSÉ MIGUEL Famotidine 20 mg 05/08/20 09:00 05/09/20 09:11 Famotidine 20 Mg Tab PO 20 mg BID JOSÉ MIGUEL Administration Furosemide 40 mg 05/08/20 09:00 05/09/20 09:09 Furosemide 40 Mg Tab PO 40 mg BID JOSÉ MIGUEL Administration Guaifenesin/Dextromethorphan 15 ml 05/05/20 16:38 05/08/20 08:15 Guaifenesin Dm 100-10/5 Ml Udcup PO 15 ml Q4H PRN Administration Cough Insulin Human Regular 0 units 05/08/20 11:50 05/08/20 12:14 Insulin Regular 300 Units/3 Ml Vial SC 2 unit .MILD SLIDING SCALE PRN Administration Mild Correctional Scale Lisinopril 2.5 mg 05/09/20 09:00 05/09/20 09:05 Lisinopril 2.5 Mg Tab PO Not Given DAILY JOSÉ MIGUEL Loratadine 10 mg 05/09/20 09:00 05/09/20 09:11 Loratadine 10 Mg Tab PO 10 mg DAILY JOSÉ MIGUEL Administration Oxymetazoline HCl 0 ml 05/09/20 07:12 05/09/20 10:27 Oxymetazoline Hcl 0.05% (30 Ml Bot) NS 30 ml Q8H PRN Administration COUGH Sodium Chloride 10 ml 05/08/20 21:00 05/09/20 09:24 Flush - Normal Saline 10 Ml Syringe IVF Not Given Q12HR JOSÉ MIGUEL Spironolactone 12.5 mg 05/09/20 08:00 05/09/20 09:10 Spironolactone 25 Mg Tab PO 12.5 mg QAM-WM JOSÉ MIGUEL Administration Hospitalist Exam Vitals: Vital Signs (12 hours) Temp Pulse Pulse Pulse Resp BP BP 05/09/20 16:51 05/09/20 15:35 98.2 F 68 16 05/09/20 13:10 73 72 105/61 100/61 05/09/20 11:33 97.9 F 71 14 05/09/20 10:08 75 05/09/20 08:53 05/09/20 08:22 86 85 124/70 114/70 05/09/20 07:33 98.2 F 78 16 BP BP Pulse Ox Pulse Ox Pulse Ox 05/09/20 16:51 91/56 L 05/09/20 15:35 92/53 L 94 L 05/09/20 13:10 05/09/20 11:33 103/69 97 05/09/20 10:08 95/60 05/09/20 08:53 92 L 05/09/20 08:22 94 L 93 L 05/09/20 07:33 102/67 92 L Weight Weight 140 lb Most Recent Monitor Data Heart Rate from ECG 77 NIBP 112/76 NIBP BP-Mean 88 Respiration from ECG 26 SpO2 99 General Appearance: awake alert Heart: RRR, no gallops Respiratory: no wheezes, no rales Gastrointestinal: soft, non-distended, no rigidity Extremities: no cyanosis, no clubbing Neurological: no new deficit Psychiatric: A&O x 3 Hosp A/P - Plan DVT proph w/SCDs 54-year-old male with hypertension, diabetes mellitus type 2, hyperlipidemia and CVA in the past presented to the hospital with shortness of breath on 05/03. He was started on noninvasive positive pressure ventilation for respiratory failure/new onset congestive heart failure. His BNP on admission was 911.4 with elevated troponin of 0.281.. He was started on IV diuretics along with O2 supplementation. Patient was evaluated by cardiology Dr. Mahoney who recommended cardiac catheterization on 05/05 that showed three-vessel disease with ejection fraction of approximately 10 to 15% requiring emergent coronary artery bypass grafting that was performed on the same day. Impression: Acute hypoxic respiratory failure due to acute systolic heart failure exacerbation Non-ST elevation OR probably due to demand ischemia Hypertension Diabetes mellitus type 2 Hyperlipidemia History of CVA Chronic anemia probably due to nutritional deficiency Hypomagnesemia Plan: Continue diuretics. Spironolactone added today. Medications for nasal congestion added earlier. Will replace magnesium. Continue cardiac rehab. LifeVest at discharge. Continue aspirin, beta-blockers and statins. Continue sliding scale 05/08 Continue supportive care. Vital signs stable. Continue cardiac rehab. Continue aspirin with statins. Started on diuretics. Low-dose carvedilol with holding parameters. A.m. labs. Continue to monitor blood sugar. Add sliding scale. Continue other medications as above 05/07 Continue Critical Care Unit monitoring. Continue aspirin with statin. Off Levophed. Will start JUHI inhibitor/beta isaak once blood pressure improves. Pain control. Replace magnesium. Add potassium replacement. Continue other medications as above
[2020-05-09] MEDS: Atorvastatin Calcium 10 MG TAB PO SCH (20:41)
[2020-05-10] MEDS: Docusate 100 MG CAP PO SCH (09:22)
[2020-05-10] MEDS: Spironolactone 25 MG TAB PO SCH (09:22)
[2020-05-10] MEDS: Furosemide 40 MG TAB PO SCH (09:22)
[2020-05-10] MEDS: Carvedilol 3.125 MG TAB PO SCH ×2 (09:23→18:32)
[2020-05-10] MEDS: Loratadine 10 MG TAB PO SCH (09:23)
[2020-05-10] MEDS: Lisinopril 2.5 MG TAB PO SCH (09:23)
[2020-05-10] MEDS: Famotidine 20 MG TAB PO SCH (09:23)
[2020-05-10] MEDS: Aspirin Chewable 81 MG TAB PO SCH (09:23)
[2020-05-10] MEDS: Oxymetazoline HCl 0.05% (30 ML BOT) NS PRN (09:27)
--- NOTE | 2020-05-10 12:32 | PDOC.DS.DS ---
Provider Date of Admission: 05/03/20 06:14 Date of Discharge: 05/10/20 Admitting Provider: Tima Bernard Consultations: Cardiology, Cardiovascular Primary Care Physician: [facility] Clinic Course Hospital Course: 54-year-old male with hypertension, diabetes mellitus type 2, hyperlipidemia and CVA in the past presented to the hospital with shortness of breath on 05/03. He was started on noninvasive positive pressure ventilation for respiratory failure/new onset congestive heart failure. His BNP on admission was 911.4 with elevated troponin of 0.281.. He was started on IV diuretics along with O2 supplementation. Patient was evaluated by cardiology Dr. Mahoney who recommended cardiac catheterization on 05/05 that showed three-vessel disease with ejection fraction of approximately 10 to 15% requiring emergent coronary artery bypass grafting that was performed on the same day. Patient was monitored in the intensive care unit post CABG. His electrolytes were replaced. Levophed was weaned off. Later on chest tube were discontinued. He was transferred to the telemetry unit. Beta-blockers and JUHI inhibitor were added to aspirin and statins. He will be discharged later today after LifeVest set up. He has been cleared by consultants for discharge. Impression: Acute hypoxic respiratory failure due to acute systolic heart failure exacerbation Non-ST elevation NC probably due to demand ischemia Hypertension Diabetes mellitus type 2 Hyperlipidemia History of CVA Chronic anemia probably due to nutritional deficiency Hypomagnesemia Resuscitation Status: 05/03/20 08:37 Resuscitation Status Routine Resuscitation Status: FULL: Full Resuscitation Lab Results: 05/07/20 03:30 05/09/20 03:46 Abnormal Lab Results - Last 48 hrs 05/05/20 12:01: Crossmatch See Detail 05/05/20 12:20: Bicarbonate Actual 21.9 L, ABG pH 7.49 H, ABG pCO2 29.7 L, ABG pO2 100.6 H, ABG O2 Content 17.0 L, ABG Hematocrit 36.0 L, ABG Hemoglobin 12.3 L 05/05/20 13:20: Bicarbonate Actual 21.3 L, ABG pH 7.32 L, ABG pO2 296.4 H, ABG O2 Sat (Measured) 99.6 H, ABG O2 Content 16.2 L, ABG Base Excess -4.4 L, ABG Hematocrit 33.0 L, ABG Hemoglobin 11.1 L, ABG Oxyhemoglobin 99.2 H, Potassium 3.64 L, Chloride 107 H, Ionized Calcium 1.09 L 05/05/20 13:37: ABG pH 7.52 H, ABG pCO2 28.6 L, ABG pO2 362.4 H, ABG O2 Sat (Measured) 99.6 H, ABG O2 Content 13.6 L, ABG Hematocrit 27.0 L, ABG Hemoglobin 9.1 L, ABG Oxyhemoglobin 98.8 H, Ionized Calcium 0.87 L 05/05/20 14:07: Bicarbonate Actual 19.0 L, ABG pH 7.59 H*, ABG pCO2 20.1 L*, ABG pO2 336.3 H, ABG O2 Sat (Measured) 99.5 H, ABG O2 Content 13.7 L, ABG Hematocrit 27.0 L, ABG Hemoglobin 9.2 L, ABG Oxyhemoglobin 98.8 H, Chloride 108 H, Ionized Calcium 0.96 L 05/05/20 14:13: VBG pH 7.51 H, VBG pCO2 28.7 L, VBG pO2 29.9 L, VBG Hematocrit 26.0 L, VBG Hemoglobin 8.9 L, VBG Ionized Calcium 0.95 L, Whole Bld Chloride 107 H 05/05/20 15:21: Bicarbonate Actual 19.8 L, ABG pCO2 33.8 L, ABG O2 Content 15.3 L, ABG Base Excess -4.5 L, ABG Hematocrit 33.0 L, ABG Hemoglobin 11.2 L, ABG Deoxyhemoglobin 3.4 H, Chloride 108 H Vitals: Vital Signs (12 hours) Temp Pulse Pulse Pulse Resp BP BP 05/10/20 12:00 98.8 F 61 17 05/10/20 09:23 77 05/10/20 08:36 90 85 110/67 114/67 05/10/20 08:00 05/10/20 07:42 98.8 F 77 16 05/10/20 07:32 05/10/20 04:00 98.6 F 74 18 BP BP Pulse Ox Pulse Ox Pulse Ox 05/10/20 12:00 96/60 92 L 05/10/20 09:23 05/10/20 08:36 92 L 94 L 05/10/20 08:00 92 L 05/10/20 07:42 101/62 92 L 05/10/20 07:32 94 L 05/10/20 04:00 94/62 94 L Weight Weight 140 lb Most Recent Monitor Data Heart Rate from ECG 77 NIBP 112/76 NIBP BP-Mean 88 Respiration from ECG 26 SpO2 99 Physical Exam: The patient was seen and examined on the day of discharge. General Appearance: NAD Neck: supple Respiratory: no wheezes, no ronchi Cardiovascular: RRR, no gallops Gastrointestinal: soft, non-distended Extremities: no cyanosis Neurological: no new deficit Problem Time Spent in discharge related activities (mins): 33 Plan Prescriptions: Aspirin Chewable [Aspirin Chewable Tablet] 81 mg PO DAILY #30 tab Carvedilol [Coreg] 3.125 mg PO BID-WM #60 tab metFORMIN [Glucophage] 500 mg PO BID-WM #60 tab Furosemide [Lasix] 40 mg PO DAILY #10 tab Atorvastatin Calcium [Lipitor] 10 mg PO HS #30 tab Spironolactone 12.5 mg PO DAILY #30 tablet Lisinopril [Zestril] 2.5 mg PO DAILY #30 tab Home Medications: Medication Instructions Recorded Confirmed Type Aspirin Chewable [Aspirin Chewable 81 mg PO DAILY #30 tab 05/10/20 Rx Tablet] Atorvastatin Calcium [Lipitor] 10 mg PO HS #30 tab 05/10/20 Rx Carvedilol [Coreg] 3.125 mg PO BID-WM #60 tab 05/10/20 Rx Furosemide [Lasix] 40 mg PO DAILY #10 tab 05/10/20 Rx Lisinopril [Zestril] 2.5 mg PO DAILY #30 tab 05/10/20 Rx Spironolactone 12.5 mg PO DAILY #30 tablet 05/10/20 Rx metFORMIN [Glucophage] 500 mg PO BID-WM #60 tab 05/10/20 Rx Allergies: No Known Drug Allergies Allergy (Verified 10/06/14 01:35) Discharge Instructions:: BMP after 2 weeks - PCP to arrange/follow Referrals: [facility] - [facility] [Outside] - 7 Days (Your doctor has ordered outpatient cardiac rehab for you to begin within 1-2 weeks after you go home from the hospital. The location nearest to you is the [facility]. We will call you in 1-2 days to get you scheduled for your evaluation. If you do not receive a call, please reach out to us at [phone] and request an appointment. ) [facility] ([facility]) [Outside] - 05/15/20 2:00 pm Aravind Graham MD [Active] - 05/24/20 1:00 pm Luciana Mahoney MD [Active] - 05/30/20 1:00 pm Disposition: HOME Quality CORE MEASURES:: N/A
[2020-05-10] MEDS ORDERED: metFORMIN 500 MG TAB PO SCH (17:00)
[2020-05-10 17:57] VITALS: BP 102/68; TEMP 97.9
--- NOTE | 2020-05-13 21:16 | EKG ---
Test Reason : Blood Pressure : / mmHG Vent. Rate : 108 BPM Atrial Rate : 108 BPM P-R Int : 112 ms QRS Dur : 098 ms QT Int : 336 ms P-R-T Axes : 020 018 197 degrees QTc Int : 450 ms Sinus tachycardia Left ventricular hypertrophy with repolarization abnormality Cannot rule out Septal infarct , age undetermined Abnormal ECG Confirmed by JL ZURITA ([id number]), managing editor SHERICE TORRES ([id number]) on 05/13/2020 9:16:01 PM Referred By: Confirmed By:JL ZURITA
== END 2020-05-10 18:58 | disposition home or self-care (01) | DRG 233 ==
LOC: ERS 04:44 → 2SE 06:14 → 2NO 20:22 → CCU 05-05 10:48 → 2NO 05-08 08:23
PROVIDERS: ADMIT Internal Medicine; ATTEND Internal Medicine
PROC: 5A09457 Assistance with Respiratory Ventilation, 24-96 Consecutive Hours, Continuous Positive Airway Pressure (ICD-10-PCS; 2020-05-03)
PROC: 4A023N7 Measurement of Cardiac Sampling and Pressure, Left Heart, Percutaneous Approach (ICD-10-PCS; principal; 2020-05-05)
PROC: 02100Z9 Bypass Coronary Artery, One Artery from Left Internal Mammary, Open Approach (ICD-10-PCS; 2020-05-05)
PROC: 021109W Bypass Coronary Artery, Two Arteries from Aorta with Autologous Venous Tissue, Open Approach (ICD-10-PCS; 2020-05-05)
PROC: 06BQ4ZZ Excision of Left Saphenous Vein, Percutaneous Endoscopic Approach (ICD-10-PCS; 2020-05-05)
PROC: B2151ZZ Fluoroscopy of Left Heart using Low Osmolar Contrast (ICD-10-PCS; 2020-05-05)
PROC: B2111ZZ Fluoroscopy of Multiple Coronary Arteries using Low Osmolar Contrast (ICD-10-PCS; 2020-05-05)
PROC: 5A1221Z Performance of Cardiac Output, Continuous (ICD-10-PCS; 2020-05-05)
DX: I11.0 Hypertensive heart disease with heart failure (principal); I21.A1 Myocardial infarction type 2; J96.01 Acute respiratory failure with hypoxia; Z20.822 Contact with and (suspected) exposure to COVID-19; I50.23 Acute on chronic systolic (congestive) heart failure; E11.9 Type 2 diabetes mellitus without complications; E78.5 Hyperlipidemia, unspecified; D53.9 Nutritional anemia, unspecified; E83.42 Hypomagnesemia; F17.210 Nicotine dependence, cigarettes, uncomplicated; I25.5 Ischemic cardiomyopathy; I25.10 Atherosclerotic heart disease of native coronary artery without angina pectoris; Z86.73 Personal history of transient ischemic attack (TIA), and cerebral infarction without residual deficits; Z79.84 Long term (current) use of oral hypoglycemic drugs; Z79.899 Other long term (current) drug therapy; Z79.82 Long term (current) use of aspirin
CPT/HCPCS: 0240U; 36415; 36416; 36430; 71045; 71275; 76942; 80048; 80053; 82553; 82805; 82947; 83735; 83880; 84443; 84484; 85025; 85379; 85610; 85730; 86850; 86900; 86901; 87635; 93005; 93010; 93306; 93458; 93798; 94002; 94150; 94660; 96374; 96375; 99152; J0690; J1100; J1644; J1650; J1815; J1885; J1940; J1956; J2001; J2150; J2250; J2260; J2270; J2440; J2720; J3010; J3370; J3475; J3480; J3490; P9045; Q9967; S0017; S0028; U0003; U0005

== ENCOUNTER 2020-05-29 16:03 | Outpatient (CLI) | payer OTHER ==
--- NOTE | 2020-05-29 16:22 | RAD ---
XR Chest Pa Lat STANDARD History: Atherosclerotic heart disease Comparison: Chest radiograph May 08, 2020 Findings: The left hemidiaphragm is elevated. Left basilar atelectatic changes. Right lung is relatively clear. No pneumothorax. Impression: Mild elevation left hemidiaphragm with small volume atelectasis.
== END 2020-05-29 16:04 | disposition home or self-care (01) ==
LOC: BICRAD 16:03
PROVIDERS: ATTEND Thoracic Surgery (Cardiothoracic Vascular Surgery)
DX: I25.10 Atherosclerotic heart disease of native coronary artery without angina pectoris (principal); J98.11 Atelectasis; Q79.1 Other congenital malformations of diaphragm
CPT/HCPCS: 71046

== ENCOUNTER 2020-09-21 09:46 | Outpatient (CLI) | payer OTHER, SELFPAY ==
[2020-09-21 11:38] LABS: Hemoglobin 11.3 g/dL (13.5-17.5); Mean Corpuscular HGB CONC 32.8 g/dL (32.0-36.0); Mean Corpuscular Hemoglobin 28.9 pg (27.0-33.0); Mean Corpuscular Volume 88.2 fl (81.2-95.1); Mean Platelet Volume 10.4 fl (7.4-10.4); Platelet Count 229 10x3/uL (150-450); RBC Distribution Width 14.5 % (11.5-14.5); Red Blood Cell (RBC) Count 3.91 10x6/uL (4.32-5.72); White Blood Cell (WBC) Count 6.7 10x3/uL (3.5-10.5)
[2020-09-21 11:39] LABS: Anion Gap 12 mmol/L (10-20); BUN (Urea Nitrogen) 8 mg/dL (8.4-25.7); Calc. Creatinine Clearance 0 mL/min (70-130); Calcium 9.9 mg/dL (7.8-10.44); Carbon Dioxide 25 mmol/L (22-29); Chloride 105 mmol/L (98-107); Glucose 142 mg/dL (70-105); Potassium 4.4 mmol/L (3.5-5.1); Sodium 138 mmol/L (136-145)
[2020-09-21 11:46] LABS: Prothrombin Time 10.9 sec (9.5-12.1)
== END 2020-09-21 09:47 | disposition home or self-care (01) ==
LOC: LABBT 09:46
PROVIDERS: ATTEND Internal Medicine Cardiovascular Disease
DX: Z01.812 Encounter for preprocedural laboratory examination (principal); I50.22 Chronic systolic (congestive) heart failure
CPT/HCPCS: 80048; 85027; 85610

== ENCOUNTER 2020-09-26 05:54 | Day surgery (SDC) | payer SELFPAY ==
[2020-09-26] MEDS ORDERED: Vancomycin HCl 500 MG VIAL ONE (05:59)
[2020-09-26] MEDS ORDERED: Fentanyl 100 MCG/2 ML VIAL ONE (06:20)
[2020-09-26] MEDS ORDERED: Midazolam HCl 5 mg/5 ml Vial ONE (06:21)
[2020-09-26] MEDS ORDERED: Propofol 1,000 MG/100 ML VIAL IV ONE (06:45)
[2020-09-26] MEDS ORDERED: CEFAZOLIN 1 GM VIAL ONE (06:51)
[2020-09-26] MEDS ORDERED: Gentamicin 80 MG/2 ML VIAL ONE (06:51)
[2020-09-26] MEDS ORDERED: Lidocaine 1% (PF) 30 ML VIAL ONE (06:51)
[2020-09-26] MEDS ORDERED: Sodium Chloride 0.9% 10 ML ONE (06:55)
[2020-09-26] MEDS ORDERED: PHENYLEPHRINE-NS 100 MCG/ML 10 ML SYRINGE ONE (07:22)
[2020-09-26] MEDS ORDERED: PROPOFOL 200 MG/20 ML VIAL ONE (07:22)
[2020-09-26] MEDS ORDERED: Lidocaine 1% PF 5 ML VIAL ONE (07:22)
[2020-09-26] MEDS ORDERED: Iopamidol 370 76% 50 ML VIAL FS ONE (09:05)
== END 2020-09-26 11:19 | disposition home or self-care (01) ==
LOC: CCL 05:54
PROVIDERS: ATTEND Internal Medicine Cardiovascular Disease
DX: I11.0 Hypertensive heart disease with heart failure (principal); I50.22 Chronic systolic (congestive) heart failure; Q26.1 Persistent left superior vena cava; I25.10 Atherosclerotic heart disease of native coronary artery without angina pectoris; I25.5 Ischemic cardiomyopathy; E11.9 Type 2 diabetes mellitus without complications; E78.5 Hyperlipidemia, unspecified; Z79.82 Long term (current) use of aspirin; Z79.84 Long term (current) use of oral hypoglycemic drugs; Z79.899 Other long term (current) drug therapy; Z86.73 Personal history of transient ischemic attack (TIA), and cerebral infarction without residual deficits; Z87.891 Personal history of nicotine dependence; Z95.1 Presence of aortocoronary bypass graft
CPT/HCPCS: 36005; 36215; 75820; J0690; J1580; J2001; J2250; J2704; J3010; J3370; Q9967

== ENCOUNTER 2024-01-20 08:49 | Inpatient (IN) | payer SELFPAY ==
[2024-01-20 09:34] LABS: #Basophils 0.07 10x3/uL (0.0-0.2); %Basophils 0.9 % (0.0-1.0); %Eosinophils 3.2 % (0.0-10.0); %Lymphocytes 20.5 % (21.0-51.0); %Monocytes 5.2 % (0.0-10.0); %Neutrophils 69.8 % (42.0-75.0); Hematocrit 26.3 % (42.0-52.0); Hemoglobin 8.3 g/dL (14.0-18.0); Mean Corpuscular HGB CONC 31.6 g/dL (32.0-36.0); Mean Corpuscular Hemoglobin 27.8 pg (27.0-31.0); Platelet Count 221 10x3/uL (130-400); RBC Distribution Width 14.3 % (11.5-14.5); Red Blood Cell (RBC) Count 2.99 mill/uL (4.70-6.10)
[2024-01-20 10:03] LABS: Troponin I 0.054 ng/mL (< 0.028)
[2024-01-20] MEDS ORDERED: Furosemide 40 MG (4 mL) VIAL ONE (10:14)
[2024-01-20] MEDS ORDERED: Iopamidol-370 76% 500 ML MDV (1 ML CHARGE) ONE (10:30)
[2024-01-20 10:33] LABS: ALT (SGPT) 14 U/L (8-55); AST (SGOT) 17 U/L (5-34); Albumin 2.7 g/dL (3.5-5.0); Alkaline Phosphatase 170 U/L (40-110); Anion Gap 15 mmol/L (10-20); BUN (Urea Nitrogen) 8 mg/dL (8.4-25.7); Bilirubin, Total 0.4 mg/dL (0.2-1.2); Calc. Creatinine Clearance 0 mL/min (70-130); Calcium 8.8 mg/dL (7.8-10.44); Carbon Dioxide 22 mmol/L (22-29); Chloride 105 mmol/L (98-107); Estimated GFR 108; Globulin 4.3 g/dL (2.4-3.5); Glucose 198 mg/dL (70-105); Potassium 4.3 mmol/L (3.5-5.1); Sodium 138 mmol/L (136-145)
[2024-01-20] MEDS ORDERED: Senokot S 8.6-50 MG TAB PO PRN (13:38)
[2024-01-20 14:55] LABS: Troponin I 0.054 ng/mL (< 0.028)
[2024-01-20 17:08] VITALS: BMI 23.3
[2024-01-20 17:22] LABS: Troponin I 0.052 ng/mL (< 0.028)
[2024-01-20] MEDS ORDERED: Glucagon 1 MG/ML KIT IM PRN (18:33)
[2024-01-20] MEDS ORDERED: Dextrose 5% in Water 1,000 ML IV PRN (18:33)
[2024-01-20] MEDS ORDERED: Dextrose 50% Abboject 50 ML SYRINGE SLOW IVP PRN (18:33)
[2024-01-20] MEDS: Carvedilol 25 MG TAB PO SCH (20:45)
[2024-01-21] MEDS: Guaifenesin DM 100-10/5 ML UDCUP PO PRN (01:35)
[2024-01-21 04:37] LABS: #Basophils 0.05 10x3/uL (0.0-0.2); %Basophils 0.5 % (0.0-1.0); %Eosinophils 2.1 % (0.0-10.0); %Lymphocytes 21.5 % (21.0-51.0); %Neutrophils 69.5 % (42.0-75.0); Hematocrit 25.9 % (42.0-52.0); Hemoglobin 8.3 g/dL (14.0-18.0); Mean Corpuscular Hemoglobin 27.5 pg (27.0-31.0); Mean Corpuscular Volume 85.8 fL (78.0-98.0); Mean Platelet Volume 10.1 fL (7.4-10.4); Platelet Count 219 10x3/uL (130-400); RBC Distribution Width 14.9 % (11.5-14.5); Red Blood Cell (RBC) Count 3.02 mill/uL (4.70-6.10)
[2024-01-21 04:52] LABS: Anion Gap 16 mmol/L (10-20); BUN (Urea Nitrogen) 12 mg/dL (8.4-25.7); Calc. Creatinine Clearance 98 mL/min (70-130); Calcium 8.6 mg/dL (7.8-10.44); Carbon Dioxide 21 mmol/L (22-29); Chloride 101 mmol/L (98-107); Estimated GFR 105; Glucose 221 mg/dL (70-105); Potassium 3.9 mmol/L (3.5-5.1); Sodium 134 mmol/L (136-145)
[2024-01-21] MEDS ORDERED: Isosorbide Mononitrate 60 MG ER.TAB PO SCH (09:00)
[2024-01-21] MEDS: Aspirin 81 mg Enteric Coated Tablet PO SCH (09:39)
[2024-01-21] MEDS: Ezetimibe 10 MG TAB PO SCH (09:39)
[2024-01-21] MEDS: Isosorbide Mononitrate 30 MG ER.TAB PO SCH (09:39)
[2024-01-21] MEDS: Enoxaparin 40 MG (0.4 mL) SYRINGE SC SCH (09:39)
[2024-01-21] MEDS: Empagliflozin 25 MG TAB PO SCH (09:39)
[2024-01-21 09:56] VITALS: BMI 23.3
[2024-01-21 10:20] LABS: Iron 42 ug/dL (65-175); Iron Binding Capacity, Total 261 mcg/dL (261-462)
[2024-01-21] MEDS ORDERED: Iopamidol 370 76% 100 ML VIAL ONE (10:52)
[2024-01-21 11:28] LABS: Hematocrit 22.4 % (42.0-52.0)
[2024-01-21] MEDS: NOREPINEPHRINE 8 MG/250 ML-D5W 250 ML IVPB SCH (11:40)
[2024-01-21 11:45] LABS: Troponin I 0.038 ng/mL (< 0.028)
[2024-01-21] MEDS: Furosemide 40 MG (4 mL) VIAL SLOW IVP SCH (11:47)
[2024-01-21 12:07] VITALS: BP 78/53
[2024-01-21] MEDS: Ondansetron PF 4 MG/2 ML Vial IVP PRN (12:46)
[2024-01-21] MEDS: NOREPINEPHRINE 8 MG/250 ML-D5W 250 ML ONE (13:12)
[2024-01-21] MEDS: Insulin Regular, Human 100 UNIT/ML 10 ML VIAL SC PRN (13:13)
[2024-01-21] MEDS: Hydrocortisone Sod Succ/PF 100 mg/2 ml Vial IVP SCH (13:13)
[2024-01-21 15:30] LABS: Bacteria/HPF None Seen HPF (None Seen); Bilirubin Negative (Negative); Blood, Urine Negative (Negative); CAUTI Indications for Culture Alt mental st,lethar; Clarity Clear (Clear); Glucose, Urine (Dipstick) Greater than 1000 mg/dL (Negative); Ketone, Urine Negative (Negative); Leukocyte Negative Leu/uL (Negative); Nitrite Negative (Negative); Protein, Urine (Dipstick) 20 mg/dL (Neg-Trace); RBC/HPF 0-3 HPF (0-3); Squamous Epithelial None Seen HPF (0-3); WBC/HPF 0-3 HPF (0-3)
[2024-01-21 15:32] LABS: Specific Gravity, Urine 1.052 (1.002-1.036)
[2024-01-21 15:33] LABS: Urine Culture Reflex No No
[2024-01-21] MEDS: Hydrocortisone Sod Succ/PF 500 mg/4 ml Vial SLOW IVP SCH (15:54)
[2024-01-21] MEDS: Benzonatate 100 MG CAP PO SCH (15:58)
[2024-01-21 17:06] LABS: Lactic Acid 1.78 mmol/L (0.5-2.2)
[2024-01-21] MEDS: Pantoprazole 40 MG VIAL IVP SCH (20:15)
[2024-01-22 05:34] LABS: #Basophils 0.04 10x3/uL (0.0-0.2); %Basophils 0.3 % (0.0-1.0); %Eosinophils 0.4 % (0.0-10.0); %Monocytes 6.2 % (0.0-10.0); %Neutrophils 70.5 % (42.0-75.0); Hematocrit 28.5 % (42.0-52.0); Hemoglobin 9.3 g/dL (14.0-18.0); Mean Corpuscular HGB CONC 32.6 g/dL (32.0-36.0); Mean Corpuscular Hemoglobin 28.7 pg (27.0-31.0); Mean Platelet Volume 10.2 fL (7.4-10.4); Platelet Count 209 10x3/uL (130-400); RBC Distribution Width 15.8 % (11.5-14.5); Red Blood Cell (RBC) Count 3.24 mill/uL (4.70-6.10)
[2024-01-22 06:00] LABS: Anion Gap 15 mmol/L (10-20); BUN (Urea Nitrogen) 17 mg/dL (8.4-25.7); Calc. Creatinine Clearance 95 mL/min (70-130); Calcium 8.4 mg/dL (7.8-10.44); Carbon Dioxide 18 mmol/L (22-29); Chloride 107 mmol/L (98-107); Estimated GFR 104; Glucose 139 mg/dL (70-105); Potassium 3.9 mmol/L (3.5-5.1); Sodium 136 mmol/L (136-145)
[2024-01-22] MEDS: Rosuvastatin 20 MG TAB PO SCH (09:40)
[2024-01-22] MEDS: Ezetimibe 10 MG TAB PO SCH (09:40)
[2024-01-22] MEDS: Acetaminophen 325 MG TAB PO PRN (09:42)
[2024-01-22 21:07] VITALS: TEMP 98
[2024-01-22] MEDS ORDERED: Magnesium 5 GM/10 ML Abboject SYRINGE ONE (21:59)
[2024-01-22] MEDS ORDERED: Calcium Chloride 1 GM/10 ML Abboject SYRINGE ONE (21:59)
[2024-01-22] MEDS ORDERED: EPINEPHrine 1 MG/10 ML Abboject SYRINGE ONE (21:59)
[2024-01-22] MEDS ORDERED: Amiodarone 150 MG/3 ML VIAL ONE (21:59)
[2024-01-22] MEDS ORDERED: Sodium Bicarb 50 MEQ/50 ML Abboject 8.4% SYRINGE ONE (21:59)
[2024-01-23] MEDS ORDERED: FLU (Fluarix Triv) TS24-25(6MOS UP)/PF 45 MCG/0.5 ML Syringe IM ONE (18:45)
== END 2024-01-23 01:00 | disposition expired | DRG 811 ==
LOC: ERS 08:49 → ERHOLD 12:59 → 2NO 17:23 → CCU 01-21 11:34 → OBSVTOIN 01-21 11:53
PROVIDERS: ADMIT Hospitalist; ATTEND Hospitalist
PROC: 30233N1 Transfusion of Nonautologous Red Blood Cells into Peripheral Vein, Percutaneous Approach (ICD-10-PCS; 2024-01-21)
PROC: 3E033XZ Introduction of Vasopressor into Peripheral Vein, Percutaneous Approach (ICD-10-PCS; 2024-01-21)
PROC: 5A12012 Performance of Cardiac Output, Single, Manual (ICD-10-PCS; principal; 2024-01-23)
PROC: 0BH17EZ Insertion of Endotracheal Airway into Trachea, Via Natural or Artificial Opening (ICD-10-PCS; 2024-01-23)
DX: D62 Acute posthemorrhagic anemia (principal); J96.01 Acute respiratory failure with hypoxia; I42.9 Cardiomyopathy, unspecified; Q26.4 Anomalous pulmonary venous connection, unspecified; I50.22 Chronic systolic (congestive) heart failure; I11.0 Hypertensive heart disease with heart failure; E11.9 Type 2 diabetes mellitus without complications; E78.00 Pure hypercholesterolemia, unspecified; I25.10 Atherosclerotic heart disease of native coronary artery without angina pectoris; E86.9 Volume depletion, unspecified; R91.8 Other nonspecific abnormal finding of lung field; E78.5 Hyperlipidemia, unspecified; R57.0 Cardiogenic shock; E27.8 Other specified disorders of adrenal gland; R13.14 Dysphagia, pharyngoesophageal phase; I95.9 Hypotension, unspecified; G47.33 Obstructive sleep apnea (adult) (pediatric); R63.4 Abnormal weight loss; I27.20 Pulmonary hypertension, unspecified; I25.2 Old myocardial infarction; Z95.1 Presence of aortocoronary bypass graft; Z79.82 Long term (current) use of aspirin; Z79.2 Long term (current) use of antibiotics; Z79.899 Other long term (current) drug therapy; Z87.891 Personal history of nicotine dependence; Z79.84 Long term (current) use of oral hypoglycemic drugs; Z68.23 Body mass index [BMI] 23.0-23.9, adult
CPT/HCPCS: 36415; 36416; 36430; 71045; 71275; 74178; 80048; 80053; 81001; 82274; 82728; 83540; 83550; 83605; 83690; 83880; 84484; 85025; 85379; 86850; 86900; 86901; 93005; 93306; 96372; 96374; 96375; G0378; J0171; J0282; J1650; J1720; J1815; J1940; J2405; J2470; J3475; P9016; Q9967